=== PATIENT | female | born 1945 | race Caucasian/White ===

== ENCOUNTER 2018-05-20 19:37 | Inpatient (IN) | payer MEDICARE, OTHER ==
[~2018-05-20] VITALS: Ht 154.9 cm; Wt 86.3 kg
[2018-05-20 20:58] LABS: BASO % 1 % (0-3); EOS # 0.1 x10^3/uL (0.0-0.7); EOS % 2 % (0-3); HEMATOCRIT 41.6 % (36.0-47.0); HEMOGLOBIN 13.5 g/dL (12.0-15.5); LYMPH # 2.6 x10^3/uL (1.0-4.8); LYMPH % 42 % (24-48); MEAN CORPUSCULAR HEMOGLOBIN 27 pg (25-35); MEAN CORPUSCULAR HGB CONC 33 g/dL (31-37); MEAN CORPUSCULAR VOLUME 83 fL (79-100); MONO # 0.5 x10^3/uL (0.0-1.1); MONO % 8 % (0-9); NEUT # 2.9 x10^3uL (1.8-7.7); NEUT % 48 % (31-73); PLATELET COUNT 220 x10^3/uL (140-400); RED BLOOD COUNT 5.03 x10^6/uL (3.50-5.40); RED CELL DISTRIBUTION WIDTH 14.6 % (11.5-14.5); WHITE BLOOD COUNT 6.2 x10^3/uL (4.0-11.0)
[2018-05-20 21:07] LABS: AMPHETAMINE/METHAMPHETAMINE NEG (NEG); BARBITURATES NEG (NEG); BENZODIAZEPINES POS (NEG); CANNABINOIDS NEG (NEG); COCAINE NEG (NEG); METHADONE NEG (NEG); OPIATES NEG (NEG); PHENCYCLIDINE NEG (NEG)
[2018-05-20 21:07] LABS: CALCIUM 9.2 mg/dL (8.5-10.1); CREATININE 1.7 mg/dL (0.6-1.0); GFR 29.6; POTASSIUM 3.9 mmol/L (3.5-5.1)
[2018-05-20] MEDS ORDERED: ESCITALOPRAM OX10 MG PO (21:08)
[2018-05-20] MEDS ORDERED: FOLI1TAB16 PO (21:08)
[2018-05-20] MEDS ORDERED: ATEN25TA42 PO (21:08)
[2018-05-20] MEDS ORDERED: LEVO100T PO (21:08)
[2018-05-20] MEDS ORDERED: QUET300T7 PO (21:08)
[2018-05-20] MEDS ORDERED: LOSA50TA14 PO (21:08)
[2018-05-20] MEDS ORDERED: ASPI81TA50 PO (21:08)
--- NOTE | 2018-05-20 21:11 | ED.ADGEN ---
Adult General Chief Complaint Chief Complaint Medical clearance [facility] HPI Patient to be admitted to the [facility] she is in emergency department for medical clearance she denies any pain and acute symptoms stated in stating she is feeling normal Review of Systems Review of Systems Constitutional: Denies fever or chills [] Eyes: Denies change in visual acuity, redness, or eye pain [] HENT: Denies nasal congestion or sore throat [] Respiratory: Denies cough or shortness of breath [] Cardiovascular: No additional information not addressed in HPI [] GI: Denies abdominal pain, nausea, vomiting, bloody stools or diarrhea [] : Denies dysuria or hematuria [] Musculoskeletal: Denies back pain or joint pain [] Integument: Denies rash or skin lesions [] Allergies Allergies Allergies Coded Allergies Type Severity Reaction Last Updated Verified donepezil Allergy Severe Shortness of Air 05/20/18 Yes Physical Exam Physical Exam Constitutional: Well developed, well nourished, no acute distress, non-toxic appearance. [] HENT: Normocephalic, atraumatic, bilateral external ears normal, oropharynx moist, no oral exudates, nose normal. [] Eyes: PERRLA, EOMI, conjunctiva normal, no discharge. [] Neck: Normal range of motion, no tenderness, supple, no stridor. [] Cardiovascular:Heart rate regular rhythm, no murmur [] Lungs & Thorax: Bilateral breath sounds clear to auscultation [] Abdomen: Bowel sounds normal, soft, no tenderness, no masses, no pulsatile masses. [] Skin: Warm, dry, no erythema, no rash. [] Back: No tenderness, no CVA tenderness. [] Extremities: No tenderness, no cyanosis, no clubbing, ROM intact, no edema. [] Neurologic: Alert and oriented X 3, normal motor function, normal sensory function, no focal deficits noted. [] Current Patient Data Lab Results Laboratory Tests Test 05/20/18 20:35 05/20/18 20:40 Urine Opiates Screen Neg (NEG) Urine Methadone Screen Neg (NEG) Urine Barbiturates Neg (NEG) Urine Phencyclidine Screen Neg (NEG) Urine Amphetamine/Methamphetamine Neg (NEG) Urine Benzodiazepines Screen Pos (NEG) Urine Cocaine Screen Neg (NEG) Urine Cannabinoids Screen Neg (NEG) Urine Ethyl Alcohol Neg (NEG) White Blood Count 6.2 x10^3/uL (4.0-11.0) Red Blood Count 5.03 x10^6/uL (3.50-5.40) Hemoglobin 13.5 g/dL (12.0-15.5) Hematocrit 41.6 % (36.0-47.0) Mean Corpuscular Volume 83 fL (79-100) Mean Corpuscular Hemoglobin 27 pg (25-35) Mean Corpuscular Hemoglobin Concent 33 g/dL (31-37) Red Cell Distribution Width 14.6 % (11.5-14.5) H Platelet Count 220 x10^3/uL (140-400) Neutrophils (%) (Auto) 48 % (31-73) Lymphocytes (%) (Auto) 42 % (24-48) Monocytes (%) (Auto) 8 % (0-9) Eosinophils (%) (Auto) 2 % (0-3) Basophils (%) (Auto) 1 % (0-3) Neutrophils # (Auto) 2.9 x10^3uL (1.8-7.7) Lymphocytes # (Auto) 2.6 x10^3/uL (1.0-4.8) Monocytes # (Auto) 0.5 x10^3/uL (0.0-1.1) Eosinophils # (Auto) 0.1 x10^3/uL (0.0-0.7) Basophils # (Auto) 0.0 x10^3/uL (0.0-0.2) Sodium Level 139 mmol/L (136-145) Potassium Level 3.9 mmol/L (3.5-5.1) Chloride Level 102 mmol/L (98-107) Carbon Dioxide Level 26 mmol/L (21-32) Anion Gap 11 (6-14) Blood Urea Nitrogen 17 mg/dL (7-20) Creatinine 1.7 mg/dL (0.6-1.0) H Estimated GFR (Cockcroft-Gault) 29.6 Glucose Level 104 mg/dL (70-99) H Calcium Level 9.2 mg/dL (8.5-10.1) EKG EKG [] Radiology/Procedures Radiology/Procedures [] Course & Med Decision Making Course & Med Decision Making Pertinent Labs and Imaging studies reviewed. (See chart for details) [] Final Impression Final Impression [] Problems: (1) Medical clearance for psychiatric admission Dragfrancisco Disclaimer Dragon Disclaimer This electronic medical record was generated, in whole or in part, using a voice recognition dictation system. JATINDER GREENWOOD MD May 20, 2018 21:11
[2018-05-20 21:23] LABS: BACTERIA,URINE 0 /HPF (0-FEW); BILIRUBIN,URINE NEG (NEG); CLARITY,URINE CLOUDY; COLOR,URINE AMBER; GLUCOSE,URINE NEG (NEG); NITRITE,URINE NEG (NEG); SQUAMOUS EPITHELIAL CELL,UR OCC /LPF; UROBILINOGEN,URINE 0.2 mg/dL (0.2 mg/dL)
[2018-05-20] MEDS ORDERED: ACETAMINOPHEN 325 MG TABLET PO PRN (21:45)
[2018-05-20 23:45] VITALS: BP 102/59
[2018-05-21] MEDS ORDERED: METHYL SALICYLATE/MENTHOL TOPICAL OINTMENT 29GM TUBE. TP PRN (01:00)
[2018-05-21] MEDS ORDERED: MAG HYDROX/AL HYDROX/SIMETH 30 ML ORAL.SUSP PO PRN (01:00)
[2018-05-21] MEDS ORDERED: MAGNESIUM HYDROXIDE 2,400 MG/30 ML ORAL.SUSP. PO PRN (01:00)
[2018-05-21] MEDS ORDERED: ACETAMINOPHEN 325 MG TABLET PO PRN (01:00)
[2018-05-21] MEDS: LEVOTHYROXINE 100 MCG TABLET PO SCH (05:45)
[2018-05-21 06:15] VITALS: BP 135/61
[2018-05-21] MEDS: FOLIC ACID 1 MG TABLET PO SCH (07:58)
[2018-05-21] MEDS: ASPIRIN 81 MG TAB.CHEW PO SCH (07:58)
[2018-05-21] MEDS: CITALOPRAM 20 MG TABLET. PO SCH (07:58)
[2018-05-21] MEDS: ATENOLOL 25 MG TABLET PO SCH (07:59)
[2018-05-21] MEDS: LOSARTAN 50 MG TABLET. PO SCH (07:59)
[2018-05-21 08:16] LABS: BASO % 1 % (0-3); EOS # 0.1 x10^3/uL (0.0-0.7); EOS % 3 % (0-3); HEMOGLOBIN 13.2 g/dL (12.0-15.5); LYMPH # 1.6 x10^3/uL (1.0-4.8); LYMPH % 36 % (24-48); MEAN CORPUSCULAR HEMOGLOBIN 27 pg (25-35); MEAN CORPUSCULAR HGB CONC 33 g/dL (31-37); MEAN CORPUSCULAR VOLUME 83 fL (79-100); MONO # 0.4 x10^3/uL (0.0-1.1); MONO % 9 % (0-9); NEUT # 2.3 x10^3uL (1.8-7.7); NEUT % 52 % (31-73); PLATELET COUNT 217 x10^3/uL (140-400); RED BLOOD COUNT 4.83 x10^6/uL (3.50-5.40); RED CELL DISTRIBUTION WIDTH 14.9 % (11.5-14.5); WHITE BLOOD COUNT 4.4 x10^3/uL (4.0-11.0)
[2018-05-21] MEDS: QUEtiapine 100 MG TABLET. PO SCH ×2 (08:19→20:16)
[2018-05-21 08:30] LABS: ALBUMIN 3.5 g/dL (3.4-5.0); ALBUMIN/GLOBULIN RATIO 0.9 (1.0-1.7); CALCIUM 9.2 mg/dL (8.5-10.1); CREATININE 1.7 mg/dL (0.6-1.0); GFR 29.6; MAGNESIUM 2.1 mg/dL (1.8-2.4); TOTAL BILIRUBIN 0.6 mg/dL (0.2-1.0); TOTAL PROTEIN 7.3 g/dL (6.4-8.2)
[2018-05-21] MEDS ORDERED: QUETIAPINE FUMARATE 300 MG PO SCH (09:00)
[2018-05-21 16:07] VITALS: BP 121/89
[2018-05-21 17:08] LABS: THYROXINE 6.7 ug/dL (4.5-12.0)
[2018-05-21 17:47] LABS: THYROID STIM HORMONE (TSH) 19.147 uIU/mL (0.358-3.740)
[2018-05-21] MEDS: CHOLECALCIFEROL (VITAMIN D3) 50,000 UNIT CAPSULE PO SCH (20:17)
--- NOTE | 2018-05-21 22:40 | PDOC ---
Exam Note: [place] Note: Please also refer to the separate dictated note~for this date of service dictated separately. Discussed the patient with Nursing staff reviewed the chart.~Reviewed interim history and current functioning. Reviewed vital signs,~ Labs/ Radiology~and current medications noted below. Continue current treatment with the changes noted in the dictated addendum note Assessment: Vital Signs: Vital Signs Date Time Temp Pulse Resp B/P (MAP) Pulse Ox O2 Delivery O2 Flow Rate FiO2 05/21/18 16:07 97.7 72 24 121/89 (100) 94 Room Air Labs: Laboratory Tests Test 05/21/18 07:27 White Blood Count 4.4 x10^3/uL (4.0-11.0) Red Blood Count 4.83 x10^6/uL (3.50-5.40) Hemoglobin 13.2 g/dL (12.0-15.5) Hematocrit 40.0 % (36.0-47.0) Mean Corpuscular Volume 83 fL (79-100) Mean Corpuscular Hemoglobin 27 pg (25-35) Mean Corpuscular Hemoglobin Concent 33 g/dL (31-37) Red Cell Distribution Width 14.9 % (11.5-14.5) H Platelet Count 217 x10^3/uL (140-400) Neutrophils (%) (Auto) 52 % (31-73) Lymphocytes (%) (Auto) 36 % (24-48) Monocytes (%) (Auto) 9 % (0-9) Eosinophils (%) (Auto) 3 % (0-3) Basophils (%) (Auto) 1 % (0-3) Neutrophils # (Auto) 2.3 x10^3uL (1.8-7.7) Lymphocytes # (Auto) 1.6 x10^3/uL (1.0-4.8) Monocytes # (Auto) 0.4 x10^3/uL (0.0-1.1) Eosinophils # (Auto) 0.1 x10^3/uL (0.0-0.7) Basophils # (Auto) 0.0 x10^3/uL (0.0-0.2) Sodium Level 140 mmol/L (136-145) Potassium Level 4.0 mmol/L (3.5-5.1) Chloride Level 103 mmol/L (98-107) Carbon Dioxide Level 27 mmol/L (21-32) Anion Gap 10 (6-14) Blood Urea Nitrogen 17 mg/dL (7-20) Creatinine 1.7 mg/dL (0.6-1.0) H Estimated GFR (Cockcroft-Gault) 29.6 BUN/Creatinine Ratio 10 (6-20) Glucose Level 86 mg/dL (70-99) Calcium Level 9.2 mg/dL (8.5-10.1) Magnesium Level 2.1 mg/dL (1.8-2.4) Iron Level 95 ug/dL (50-170) Total Iron Binding Capacity 290 ug/dL (250-450) Iron Saturation 33 % (15-34) Total Bilirubin 0.6 mg/dL (0.2-1.0) Aspartate Amino Transferase (AST) 21 U/L (15-37) Alanine Aminotransferase (ALT) 18 U/L (14-59) Alkaline Phosphatase 72 U/L (46-116) Total Protein 7.3 g/dL (6.4-8.2) Albumin 3.5 g/dL (3.4-5.0) Albumin/Globulin Ratio 0.9 (1.0-1.7) L Triglycerides Level 79 mg/dL (0-150) Cholesterol Level 262 mg/dL (0-200) H LDL Cholesterol, Calculated 196 mg/dL (0-100) H VLDL Cholesterol, Calculated 15 mg/dL (0-40) Non-HDL Cholesterol Calculated 211 mg/dL (0-129) H HDL Cholesterol 51 mg/dL (40-60) Cholesterol/HDL Ratio 5.0 25-Hydroxy Vitamin D Total 12.8 ng/mL (30-100) L Thyroid Stimulating Hormone (TSH) 19.147 uIU/mL (0.358-3.740) Thyroxine (T4) 6.7 ug/dL (4.5-12.0) Total Triiodothyronine (TT3) 68 ng/dL (71-180) L Treponema pallidum Antibody Nonreactive (Nonreactive) Current Medications: Meds: Current Medications Acetaminophen (Tylenol) 650 mg PRN Q4HRS PRN PO FEVER; Start 05/20/18 at 21:45 ; Stop 05/21/18 at 21:44; Status DC Acetaminophen (Tylenol) 650 mg PRN Q6HRS PRN PO PAIN / TEMP; Start 3/22/19 at 01:00 Multi-Ingredient Ointment (Analgesic [place]) 1 best PRN QID PRN TP MUSCLE PAIN; Start 05/21/18 at 01:00 Al Hydroxide/Mg Hydroxide (Mylanta Plus Xs) 15 ml PRN AFTMEALHC PRN PO DYSPEPSIA; Start 05/21/18 at 01:00 Magnesium Hydroxide (Milk Of Magnesia) 2,400 mg PRN QHS PRN PO CONSTIPATION; Start 05/21/18 at 01:00 Atenolol (Tenormin) 25 mg DAILY PO Last administered on 05/21/18at 07:59; Start 05/21/18 at 09:00 Levothyroxine Sodium (Synthroid) 100 mcg DAILY06 PO Last administered on at 05:45; Start 05/21/18 at 06:00 Aspirin (Children'S Aspirin) 81 mg DAILYWBKFT PO Last administered on at 07:58; Start 05/21/18 at 08:00 Folic Acid (Folic Acid) 1 mg DAILY PO Last administered on 05/21/18at 07:58; Start 05/21/18 at 09:00 Losartan Potassium (Cozaar) 50 mg DAILY PO Last administered on 05/21/18at 07:59 ; Start 05/21/18 at 09:00 Citalopram Hydrobromide (CeleXA) 20 mg DAILY PO Last administered on 05/21/18at 07:58; Start 05/21/18 at 09:00 Non-Formulary Medication (Quetiapine Fumarate (Seroquel Xr)) 300 mg DAILY PO ; Start 05/21/18 at 09:00; Stop 05/21/18 at 09:00; Status DC Quetiapine Fumarate (SEROquel) 150 mg BID PO Last administered on 05/21/18at 20: 16; Start 05/21/18 at 09:00 Vitamin D (Vitamin D3) 50,000 unit WEEKLY PO Last administered on 05/21/18at 20: 17; Start 05/21/18 at 18:30 Active Scripts Active Reported Synthroid (Levothyroxine Sodium) 100 Mcg Tablet 100 Mcg PO DAILYAC Seroquel Xr (Quetiapine Fumarate) 300 Mg Tab.er.24h 300 Mg PO DAILY Losartan Potassium 50 Mg Tablet 50 Mg PO DAILY Escitalopram Oxalate 10 Mg Tablet 10 Mg PO DAILY Folic Acid 1 Mg Tablet 1 Mg PO DAILY Atenolol (Atenolol) 25 Mg Tablet 25 Mg PO DAILY Aspir-Low (Aspirin) 81 Mg Tablet. 81 Mg PO DAILY I have reviewed the current psychotropics carefully including drug interactions. Risk benefit ratio favors no change other than as noted in my dictated progress note. Diagnosis: Problems: (1) Dementia with behavioral disturbance (2) Medical clearance for psychiatric admission LENORE REAGAN MD May 21, 2018 22:40
[2018-05-21 23:06] LABS: HEMOGLOBIN A1C 5.7 % (4.8-5.6)
--- NOTE | 2018-05-21 23:56 | CONS ---
DATE OF CONSULTATION: 05/21/2018 REASON FOR CONSULTATION: Medical management. HISTORY OF PRESENT ILLNESS: The patient is a 72-year-old female patient who apparently self signed herself in on account of increasing anxiety, paranoia, thinks she will be kicked out of her apartment whether someone will break in and apparently she has not been taking her medication for more than 2 weeks, all this on a background of major depressive disorder. PAST MEDICAL HISTORY: Significant for hypothyroidism, hypertension, osteoarthritis, constipation. PAST PSYCHIATRIC HISTORY: Significant for dementia, major depressive disorder, generalized anxiety disorder and bipolar disorder. ALLERGIES: SHE IS ALLERGIC TO ARICEPT AND INFLUENZA VIRUS VACCINE. MEDICATIONS: She is currently on following medications: She is on atenolol 25 mg once a day, losartan potassium 50 mg once a day, aspirin 81 mg once a day, escitalopram oxalate 10 mg daily. She is on quetiapine fumarate 300 mg daily, levothyroxine sodium 100 mcg daily, folic acid 1 mg once a day. FAMILY HISTORY: Noncontributory. SOCIAL HISTORY: She apparently lives alone, has no children. PHYSICAL EXAMINATION: GENERAL: On examining her, she looked pale, but no jaundice, cyanosis, or thyromegaly. No jugular venous distension. No lower limb edema. VITAL SIGNS: Her heart rate was 72, blood pressure 121/89, temperature was 98.1, respiratory rate was 18 and oxygen saturation was 94%. HEAD, EYES, EARS, NOSE AND THROAT: Showed normocephalic, atraumatic. NECK: Supple. HEART: Showed normal first and second heart sounds with no gallop, rub or murmur. CHEST: Clear to auscultation. No crepitation or rhonchi. ABDOMEN: Distended, soft, nontender. NEUROLOGIC: She is demented, but without any obvious lateralizing sign. All her cranial nerves intact. EXTREMITIES: She moves all extremities without difficulty. She ambulates without assistance or assistive devices. LABORATORY DATA: Showed a white cell count of 6200, hemoglobin 13, hematocrit 42, MCV 82 and platelet count of 220,000. Her chemistry showed a serum sodium 140, potassium 4, chloride 103, bicarbonate 27, anion gap of 10, BUN 17, creatinine 1.7. Estimated GFR was 29 mL per minute. Her glucose was 86, calcium was 9.2, magnesium 2.1. Serum iron 95, TIBC was 220 and iron saturation was 33%. Her total bilirubin, AST, ALT, alkaline phosphatase were normal. Total protein was 7.3, albumin was 3.5. Serum triglycerides were 79. Total cholesterol was 262, LDL was 196, VLDL was 15, HDL was 51, the ratio was 5. Her 25-hydroxy vitamin D was 12.8, which is low. TSH was high at 19.147, total T4 was normal, but total T3 was low at 68. Her urinalysis was unremarkable. Toxic screen was essentially negative and her treponema pallidum antibody was nonreactive. ASSESSMENT AND PLAN: In summary, this is a 72-year-old female patient, who signed herself in on account of increasing anxiety, increased paranoia, thinking that she will be kicked out of her apartment or that someone would break in. Apparently, she has not been taking her medication for almost 2 weeks now. Medically, she is known to have hypothyroidism, hypertension, osteoarthritis, and chronic constipation. Her lab work showed that she has hypovitaminosis D and also her TSH was high. Given the fact that she is not really taking her medication, it is difficult to know whether this is really a low-dose of Synthroid or that she is not taking it properly. I will replenish her vitamin D; however, I will probably wait for a few more days and repeat her T3, T4, free T4 and then adjust Synthroid higher if they continue to be low and TSH continued to be high. Thank you, Dr. Penny, for allowing me to participate in the care of this patient. DOLORES SIMEON MD DR: TOÑITO/victor m JOB#: [id number] / [id number]
[2018-05-22] MEDS: LEVOTHYROXINE 100 MCG TABLET PO SCH (05:33)
[2018-05-22 05:50] VITALS: BP 131/78
[2018-05-22] MEDS: ASPIRIN 81 MG TAB.CHEW PO SCH (08:05)
[2018-05-22] MEDS: QUEtiapine 100 MG TABLET. PO SCH ×2 (08:05→20:07)
[2018-05-22] MEDS: LOSARTAN 50 MG TABLET. PO SCH (08:05)
[2018-05-22] MEDS: FOLIC ACID 1 MG TABLET PO SCH (08:05)
[2018-05-22] MEDS: CITALOPRAM 20 MG TABLET. PO SCH (08:05)
[2018-05-22] MEDS: ATENOLOL 25 MG TABLET PO SCH (08:06)
--- NOTE | 2018-05-22 09:15 | HP ---
ADMIT DATE: 05/21/2018 This is a late entry, date of service 05/21/2018, covers elements not covered in my initial note. I met with the patient evening of 05/21/2018 for this evaluation. Previously discussed with Ira Elias, catering coordinator and nursing staff on 2 or 3 occasions after we got a referral from the [facility], referred by the patient's primary care physician at the [facility]. IDENTIFYING DATA: The patient is a 72-year-old female referred as above after she presented to the [facility] earlier on 05/20/2018 with increasing anxiety, paranoia. She is telling the staff that she will be kicked out of her apartment or that someone will break in. She has not been taking medications for the past 2 weeks, has been increasingly paranoid, anxious, unmanageable and concerns have been that she lives alone in her apartment despite case management services. Behaviors deemed dangerous. She continues to drive despite all the above and her progressive memory deficits. She has a history of bipolar disorder with psychotic features. CHIEF COMPLAINT: "They are coming after me. I see Aleida at the [facility] for my medications and Liz, the caser comes to my home in [place]. I have still been driving. I have not had an accident touch wood." The patient is anxious, restless, constantly moving, very paranoid, distractible during the entire session. HISTORY OF PRESENT ILLNESS: The patient has a history of progressive short term memory deficits, marked anxiety, mood lability, sleep and appetite disturbance and significant paranoia. She denies active suicidal or homicidal ideation. She has failed a prior recent inpatient psychiatric hospitalization at [facility]. PAST PSYCHIATRIC HISTORY: As above. PAST MEDICAL HISTORY: Positive for hypothyroidism, hypertension, osteoarthritis, chronic constipation. CODE STATUS: Full code. DRUG ALLERGIES: ARICEPT AND FLU VACCINE. Diet, mechanical soft. Accu-Cheks, none. Takes medications whole. Ambulates ad shelly. UA negative on 05/20/2018. CURRENT PSYCHOTROPICS: Celexa 20 mg a day, Seroquel XR 300 mg a day. FAMILY HISTORY: Noncontributory. SOCIAL HISTORY: No history of alcohol, drug abuse, physical, sexual or elder abuse. She is not known to be a perpetrator. REACTION TO HOSPITALIZATION: The patient accepting of it. ASSETS: Supportive living in her apartment and support from the [facility] staff. REVIEW OF SYSTEMS: No CV, , pulmonary, eye, ENT system symptoms on review. She has vague somatic symptoms. MENTAL STATUS EXAMINATION: The patient was seen individually in her room, evening of 05/21/2018. She is oriented to herself and situation. She is anxious, restless, constantly moving up and down, standing up, looking around, easily distractable, paranoid. Speech coherent, rapid at times. Abstraction fair, computation impaired, language function intact, attention span short. Mood and affect quite labile. No active suicidal or homicidal ideation. The patient is alert, oriented x 2. When questioned on who the president was, she was unable to remember the name and stated that person with a blonde hair. LABORATORY DATA: Reviewed. IMPRESSION: Probable bipolar 1 disorder, mixed with psychotic features. Major neurocognitive disorder, early Alzheimer, vascular with delusion, depression. Anxiety disorder, unspecified. Impulse control disorder, unspecified. Rest as above. PLAN: Admit to Geropsychiatry Unit at [facility]. I will see the patient daily individually from a psychiatric standpoint, medical followup with Dr. Collier. Continue the patient on her current psychotropics. Consider Depakote as a mood stabilizer. Consider changing Seroquel to Risperdal given her significant psychotic symptoms. In the interim, we will change the Seroquel XR 300 mg daily to Seroquel 150 b.i.d. since XR is not available at the hospital. Further we will have a CT head done, workup of her memory deficits and obtain past psychiatric records from [facility]. Estimated length of stay 10-12 days. DISPOSITION PLAN: Perhaps back to her apartment or a more structured setting. LENORE REAGAN MD DR: MOIZ/victor m JOB#: [id number] / [id number]
--- NOTE | 2018-05-22 14:04 | RAD ---
CT HEAD WO CONTRAST History: Mental status change Comparison: None. Technique: Noncontrast CT imaging was performed of the head. Exposure: One or more of the following individualized dose reduction techniques were utilized for this examination: 1. Automated exposure control 2. Adjustment of the mA and/or kV according to patient size 3. Use of iterative reconstruction technique. Findings: There is motion degradation. No convincing acute intracranial hemorrhage is identified. There is no midline shift. Ventricular size is fairly proportionate to the sulcal spaces, some cystic foci in the temporal region which may be due to extent of the ventricles or cysts. There is atherosclerotic calcification of the carotid siphons bilaterally. There is some scattered [id number] ill-defined low-density of the supratentorial parenchyma bilaterally. Visualized paranasal sinuses are mostly aerated, negligible patchy ethmoid air cell mucosal thickening. There is right td bullosa. Mastoid air cells are aerated. No acute calvarial abnormality is identified. Impression: 1. No convincing acute intracranial abnormality is identified allowing for motion. Ill-defined low-density of the supratentorial parenchyma bilaterally is more commonly due to chronic microvascular ischemic disease in a patient this age. Electronically signed by: Giorgi Leiva MD (05/22/2018 2:01 PM) [facility]
[2018-05-22 16:22] VITALS: BP 124/72
--- NOTE | 2018-05-22 23:05 | PDOC ---
Exam Note: [place] Note: Please also refer to the separate dictated note~for this date of service dictated separately.~Patient seen individually. Discussed the patient with Nursing staff reviewed the chart.~Reviewed interim history and current functioning. Reviewed vital signs,~Labs/ Radiology~and current medications noted below. Continue current treatment with the changes noted in the dictated addendum note Assessment: Vital Signs: Vital Signs Date Time Temp Pulse Resp B/P (MAP) Pulse Ox O2 Delivery O2 Flow Rate FiO2 05/22/18 16:22 97.8 79 20 124/72 (89) 98 Room Air I&O Intake and Output 05/22/18 07:00 Intake Total 840 ml Balance 840 ml Intake Oral 840 ml Current Medications: Meds: Current Medications Acetaminophen (Tylenol) 650 mg PRN Q4HRS PRN PO FEVER; Start 05/20/18 at 21:45 ; Stop 05/21/18 at 21:44; Status DC Acetaminophen (Tylenol) 650 mg PRN Q6HRS PRN PO PAIN / TEMP; Start 05/21/18 at 01:00 Multi-Ingredient Ointment (Analgesic [place]) 1 best PRN QID PRN TP MUSCLE PAIN; Start 05/21/18 at 01:00 Al Hydroxide/Mg Hydroxide (Mylanta Plus Xs) 15 ml PRN AFTMEALHC PRN PO DYSPEPSIA; Start 05/21/18 at 01:00 Magnesium Hydroxide (Milk Of Magnesia) 2,400 mg PRN QHS PRN PO CONSTIPATION; Start 05/21/18 at 01:00 Atenolol (Tenormin) 25 mg DAILY PO Last administered on 05/22/18at 08:06; Start 05/21/18 at 09:00 Levothyroxine Sodium (Synthroid) 100 mcg DAILY06 PO Last administered on at 05:33; Start 05/21/18 at 06:00 Aspirin (Children'S Aspirin) 81 mg DAILYWBKFT PO Last administered on at 08:05; Start 05/21/18 at 08:00 Folic Acid (Folic Acid) 1 mg DAILY PO Last administered on 05/22/18at 08:05; Start 05/21/18 at 09:00 Losartan Potassium (Cozaar) 50 mg DAILY PO Last administered on 05/22/18at 08:05 ; Start 05/21/18 at 09:00 Citalopram Hydrobromide (CeleXA) 20 mg DAILY PO Last administered on 05/22/18at 08:05; Start 05/21/18 at 09:00 Non-Formulary Medication (Quetiapine Fumarate (Seroquel Xr)) 300 mg DAILY PO ; Start 05/21/18 at 09:00; Stop 05/21/18 at 09:00; Status DC Quetiapine Fumarate (SEROquel) 150 mg BID PO Last administered on 05/22/18at 20: 07; Start 05/21/18 at 09:00 Vitamin D (Vitamin D3) 50,000 unit WEEKLY PO Last administered on 05/21/18at 20: 17; Start 05/21/18 at 18:30 Active Scripts Active Reported Synthroid (Levothyroxine Sodium) 100 Mcg Tablet 100 Mcg PO DAILYAC Seroquel Xr (Quetiapine Fumarate) 300 Mg Tab.er.24h 300 Mg PO DAILY Losartan Potassium 50 Mg Tablet 50 Mg PO DAILY Escitalopram Oxalate 10 Mg Tablet 10 Mg PO DAILY Folic Acid 1 Mg Tablet 1 Mg PO DAILY Atenolol (Atenolol) 25 Mg Tablet 25 Mg PO DAILY Aspir-Low (Aspirin) 81 Mg Tablet. 81 Mg PO DAILY I have reviewed the current psychotropics carefully including drug interactions. Risk benefit ratio favors no change other than as noted in my dictated progress note. Diagnosis: Problems: (1) Dementia with behavioral disturbance (2) Medical clearance for psychiatric admission LENORE REAGAN MD May 22, 2018 23:05
[2018-05-23] MEDS ORDERED: risperiDONE 0.5 MG TABLET. PO ONE (01:15)
[2018-05-23] MEDS: LEVOTHYROXINE 100 MCG TABLET PO SCH (05:03)
[2018-05-23 06:16] VITALS: BP 135/0
[2018-05-23] MEDS: CITALOPRAM 20 MG TABLET. PO SCH (07:31)
[2018-05-23] MEDS: ASPIRIN 81 MG TAB.CHEW PO SCH (07:31)
[2018-05-23] MEDS: FOLIC ACID 1 MG TABLET PO SCH (07:31)
[2018-05-23 07:43] VITALS: BP 128/64
[2018-05-23] MEDS: LOSARTAN 50 MG TABLET. PO SCH (07:49)
[2018-05-23] MEDS: ATENOLOL 25 MG TABLET PO SCH (07:50)
[2018-05-23 16:38] VITALS: BP 130/68
[2018-05-23] MEDS: traZODone 50 MG TABLET. PO SCH (20:30)
[2018-05-23] MEDS: risperiDONE 0.25 MG TABLET. PO SCH (20:30)
--- NOTE | 2018-05-23 22:39 | PDOC ---
Exam Note: [place] Note: Please also refer to the separate dictated note~for this date of service dictated separately.~Patient seen individually. Discussed the patient with Nursing staff reviewed the chart.~Reviewed interim history and current functioning. Reviewed vital signs,~Labs/ Radiology~and current medications noted below. Continue current treatment with the changes noted in the dictated addendum note Assessment: Vital Signs: Vital Signs Date Time Temp Pulse Resp B/P (MAP) Pulse Ox O2 Delivery O2 Flow Rate FiO2 05/23/18 16:38 98.0 77 17 130/68 (88) 96 Room Air I&O Intake and Output 05/23/18 07:00 Intake Total 1200 ml Balance 1200 ml Intake Oral 1200 ml # Voids 1 Current Medications: Meds: Current Medications Acetaminophen (Tylenol) 650 mg PRN Q4HRS PRN PO FEVER; Start 05/20/18 at 21:45 ; Stop 05/21/18 at 21:44; Status DC Acetaminophen (Tylenol) 650 mg PRN Q6HRS PRN PO PAIN / TEMP; Start 05/21/18 at 01:00 Multi-Ingredient Ointment (Analgesic [place]) 1 best PRN QID PRN TP MUSCLE PAIN; Start 05/21/18 at 01:00 Al Hydroxide/Mg Hydroxide (Mylanta Plus Xs) 15 ml PRN AFTMEALHC PRN PO DYSPEPSIA; Start 05/21/18 at 01:00 Magnesium Hydroxide (Milk Of Magnesia) 2,400 mg PRN QHS PRN PO CONSTIPATION; Start 05/21/18 at 01:00 Atenolol (Tenormin) 25 mg DAILY PO Last administered on 05/23/18at 07:50; Start 05/21/18 at 09:00 Levothyroxine Sodium (Synthroid) 100 mcg DAILY06 PO Last administered on at 05:03; Start 05/21/18 at 06:00 Aspirin (Children'S Aspirin) 81 mg DAILYWBKFT PO Last administered on at 07:31; Start 05/21/18 at 08:00 Folic Acid (Folic Acid) 1 mg DAILY PO Last administered on 05/23/18at 07:31; Start 05/21/18 at 09:00 Losartan Potassium (Cozaar) 50 mg DAILY PO Last administered on 05/23/18at 07:49 ; Start 05/21/18 at 09:00 Citalopram Hydrobromide (CeleXA) 20 mg DAILY PO Last administered on 05/23/18at 07:31; Start 05/21/18 at 09:00 Non-Formulary Medication (Quetiapine Fumarate (Seroquel Xr)) 300 mg DAILY PO ; Start 05/21/18 at 09:00; Stop 05/21/18 at 09:00; Status DC Quetiapine Fumarate (SEROquel) 150 mg BID PO Last administered on 05/22/18at 20: 07; Start 05/21/18 at 09:00; Stop 05/23/18 at 00:01; Status DC Vitamin D (Vitamin D3) 50,000 unit WEEKLY PO Last administered on 05/21/18 20: 17; Start 05/21/18 at 18:30 Risperidone (RisperDAL) 0.5 mg 1X ONCE PO Last administered on 05/23/18at 01:53 ; Start 05/23/18 at 01:15; Stop 05/23/18 at 01:21; Status DC Risperidone (RisperDAL) 1 mg HS PO Last administered on 05/23/18at 20:30; Start 05/23/18 at 21:00 Olanzapine (ZyPREXA ZYDIS) 2.5 mg PRN Q2HR PRN PO PSYCHOSIS; Start 05/23/18 at 00:00 Trazodone HCl (Desyrel) 50 mg QHS PO Last administered on 05/23/18at 20:30; Start 05/23/18 at 21:00 Active Scripts Active Reported Synthroid (Levothyroxine Sodium) 100 Mcg Tablet 100 Mcg PO DAILYAC Seroquel Xr (Quetiapine Fumarate) 300 Mg Tab.er.24h 300 Mg PO DAILY Losartan Potassium 50 Mg Tablet 50 Mg PO DAILY Escitalopram Oxalate 10 Mg Tablet 10 Mg PO DAILY Folic Acid 1 Mg Tablet 1 Mg PO DAILY Atenolol (Atenolol) 25 Mg Tablet 25 Mg PO DAILY Aspir-Low (Aspirin) 81 Mg Tablet.dr 81 Mg PO DAILY I have reviewed the current psychotropics carefully including drug interactions. Risk benefit ratio favors no change other than as noted in my dictated progress note. Diagnosis: Problems: (1) Dementia with behavioral disturbance (2) Medical clearance for psychiatric admission LENORE REAGAN MD May 23, 2018 22:39
[2018-05-24 05:23] VITALS: BP 156/78
[2018-05-24] MEDS: LEVOTHYROXINE 100 MCG TABLET PO SCH (05:32)
[2018-05-24] MEDS: ATENOLOL 25 MG TABLET PO SCH (07:45)
[2018-05-24] MEDS: ASPIRIN 81 MG TAB.CHEW PO SCH (07:45)
[2018-05-24] MEDS: FOLIC ACID 1 MG TABLET PO SCH (07:45)
[2018-05-24] MEDS: LOSARTAN 50 MG TABLET. PO SCH (07:45)
[2018-05-24] MEDS: CITALOPRAM 20 MG TABLET. PO SCH (07:47)
[2018-05-24 16:58] VITALS: BP 120/75
[2018-05-24] MEDS: traZODone 50 MG TABLET. PO SCH (19:50)
[2018-05-24] MEDS: risperiDONE 0.25 MG TABLET. PO SCH (19:50)
--- NOTE | 2018-05-24 20:05 | PN ---
DATE: 05/22/2018 PSYCHIATRIC PROGRESS NOTE This late entry 05/22/2018 covers elements not covered in my initial note. SUBJECTIVE: I met with the patient late in the evening. The patient slept 6 hours previous night, remains somewhat anxious, at times believes she is in a assisted. REVIEW OF SYSTEMS: Positive for ongoing anxiety. No CV, , pulmonary, eye, ENT system symptoms on review. MENTAL STATUS EXAM: The patient is reasonably oriented. Speech coherent, rapid at times. Abstraction fair, computation impaired, language function intact. She is quite anxious, distractable, paranoid, looking all over the room as I met with her. LABORATORY DATA: Reviewed. IMPRESSION: Probable bipolar 1 disorder, mixed with psychotic features; anxiety disorder, unspecified. PLAN: Start trazodone 50 mg at bedtime, may repeat x 1. Change the Seroquel XR 300 mg a day to Risperdal 0.5 mg at bedtime x 1 day, then 1 mg p.o. at bedtime thereafter and start Zyprexa 2.5 mg q.2 hours p.r.n. psychosis, agitation, max 10 mg in 24 hours. Rest unchanged. MAN Dileep REAGAN MD DR: MOIZ/victor m JOB#: [id number] / [id number]
--- NOTE | 2018-05-24 20:06 | PN ---
DATE: 05/23/2018 PSYCHIATRIC PROGRESS NOTE This late entry 05/23/2018 covers elements not covered in my initial note. SUBJECTIVE: I met with the patient in the evening. The patient slept 7-1/4 hours previous night. She is still anxious, but better than before. REVIEW OF SYSTEMS: No CV, , pulmonary, eye system symptoms on review. MENTAL STATUS EXAM: Oriented reasonably. Speech is coherent, abstraction fair, computation impaired, language function intact, attention span short. Mood and affect remain somewhat anxious, labile. LABORATORY DATA: Reviewed. IMPRESSION: Unchanged from initial note. PLAN: No change from initial note. MAN Dileep REAGAN MD DR: MOIZ/victor m JOB#: [id number] / [id number]
--- NOTE | 2018-05-24 22:38 | PDOC ---
Exam Note: [place] Note: Please also refer to the separate dictated note~for this date of service dictated separately.~Patient seen individually. Discussed the patient with Nursing staff reviewed the chart.~Reviewed interim history and current functioning. Reviewed vital signs,~Labs/ Radiology~and current medications noted below. Continue current treatment with the changes noted in the dictated addendum note Assessment: Vital Signs: Vital Signs Date Time Temp Pulse Resp B/P (MAP) Pulse Ox O2 Delivery O2 Flow Rate FiO2 05/24/18 16:58 96.9 73 18 120/75 (90) 95 05/23/18 16:38 Room Air I&O Intake and Output 05/24/18 07:00 Intake Total 1200 ml Balance 1200 ml Intake Oral 1200 ml Current Medications: Meds: Current Medications Acetaminophen (Tylenol) 650 mg PRN Q4HRS PRN PO FEVER; Start 05/20/18 at 21:45 ; Stop 05/21/18 at 21:44; Status DC Acetaminophen (Tylenol) 650 mg PRN Q6HRS PRN PO PAIN / TEMP; Start 05/21/18 at 01:00 Multi-Ingredient Ointment (Analgesic [place]) 1 best PRN QID PRN TP MUSCLE PAIN; Start 05/21/18 at 01:00 Al Hydroxide/Mg Hydroxide (Mylanta Plus Xs) 15 ml PRN AFTMEALHC PRN PO DYSPEPSIA; Start 05/21/18 at 01:00 Magnesium Hydroxide (Milk Of Magnesia) 2,400 mg PRN QHS PRN PO CONSTIPATION; Start 05/21/18 at 01:00 Atenolol (Tenormin) 25 mg DAILY PO Last administered on 05/24/18at 07:45; Start 05/21/18 at 09:00 Levothyroxine Sodium (Synthroid) 100 mcg DAILY06 PO Last administered on at 05:32; Start 05/21/18 at 06:00 Aspirin (Children'S Aspirin) 81 mg DAILYWBKFT PO Last administered on 07:45; Start 05/21/18 at 08:00 Folic Acid (Folic Acid) 1 mg DAILY PO Last administered on 05/24/18 07:45; Start 05/21/18 at 09:00 Losartan Potassium (Cozaar) 50 mg DAILY PO Last administered on 05/24/18at 07:45 ; Start 05/21/18 at 09:00 Citalopram Hydrobromide (CeleXA) 20 mg DAILY PO Last administered on 05/24/18 07:47; Start 05/21/18 at 09:00 Non-Formulary Medication (Quetiapine Fumarate (Seroquel Xr)) 300 mg DAILY PO ; Start 05/21/18 at 09:00; Stop 05/21/18 at 09:00; Status DC Quetiapine Fumarate (SEROquel) 150 mg BID PO Last administered on 05/22/18at 20: 07; Start 05/21/18 at 09:00; Stop 05/23/18 at 00:01; Status DC Vitamin D (Vitamin D3) 50,000 unit WEEKLY PO Last administered on 05/21/18 20: 17; Start 05/21/18 at 18:30 Risperidone (RisperDAL) 0.5 mg 1X ONCE PO Last administered on 05/23/18 01:53 ; Start 05/23/18 at 01:15; Stop 05/23/18 at 01:21; Status DC Risperidone (RisperDAL) 1 mg HS PO Last administered on 05/24/18 19:50; Start 05/23/18 at 21:00 Olanzapine (ZyPREXA ZYDIS) 2.5 mg PRN Q2HR PRN PO PSYCHOSIS; Start 05/23/18 at 00:00 Trazodone HCl (Desyrel) 50 mg QHS PO Last administered on 05/24/18 19:50; Start 05/23/18 at 21:00 Active Scripts Active Reported Synthroid (Levothyroxine Sodium) 100 Mcg Tablet 100 Mcg PO DAILYAC Seroquel Xr (Quetiapine Fumarate) 300 Mg Tab.er.24h 300 Mg PO DAILY Losartan Potassium 50 Mg Tablet 50 Mg PO DAILY Escitalopram Oxalate 10 Mg Tablet 10 Mg PO DAILY Folic Acid 1 Mg Tablet 1 Mg PO DAILY Atenolol (Atenolol) 25 Mg Tablet 25 Mg PO DAILY Aspir-Low (Aspirin) 81 Mg Tablet.dr 81 Mg PO DAILY I have reviewed the current psychotropics carefully including drug interactions. Risk benefit ratio favors no change other than as noted in my dictated progress note. Diagnosis: Problems: (1) Dementia with behavioral disturbance (2) Medical clearance for psychiatric admission LENORE REAGAN MD May 24, 2018:38
[2018-05-25] MEDS: LEVOTHYROXINE 100 MCG TABLET PO SCH (05:26)
[2018-05-25 06:03] VITALS: BP 148/86
[2018-05-25] MEDS: ASPIRIN 81 MG TAB.CHEW PO SCH (08:46)
[2018-05-25] MEDS: FOLIC ACID 1 MG TABLET PO SCH (08:46)
[2018-05-25] MEDS: ATENOLOL 25 MG TABLET PO SCH (08:46)
[2018-05-25] MEDS: CITALOPRAM 20 MG TABLET. PO SCH (08:46)
[2018-05-25] MEDS: LOSARTAN 50 MG TABLET. PO SCH (08:46)
[2018-05-25 16:15] VITALS: BP 134/79
[2018-05-25] MEDS: traZODone 50 MG TABLET. PO SCH (19:29)
[2018-05-25] MEDS: MIRTAZAPINE 7.5 MG TABLET. PO SCH (19:33)
[2018-05-25] MEDS: risperiDONE 1 MG TABLET. PO SCH (19:33)
--- NOTE | 2018-05-25 21:49 | PN ---
DATE: 05/24/2018 PSYCHIATRIC PROGRESS NOTE This late entry 05/24/2018 covers elements not covered in my initial note. SUBJECTIVE: I met with the patient in the evening. The patient slept 6-1/2 hours previous night. Overall, she states she is doing better, less paranoid, less anxious, but still fidgeting with her fingers as I met with her. REVIEW OF SYSTEMS: No CV, , pulmonary, eye, ENT system symptoms on review. Reliability varies. MENTAL STATUS EXAM: Oriented to herself and situation. Speech has some latency, coherent and at times pressured. Abstraction fair, computation impaired, language function intact, attention span short. Mood and affect somewhat anxious, labile, but improved. LABORATORY DATA: Reviewed. IMPRESSION: Unchanged from initial note. PLAN: Get records from [facility]. Rest unchanged including Risperdal in place of Seroquel. MAN Dileep REAGAN MD DR: MOIZ/victor m JOB#: [id number] / [id number]
--- NOTE | 2018-05-25 22:55 | PDOC ---
Exam Note: [place] Note: Please also refer to the separate dictated note~for this date of service dictated separately.~Patient seen individually. Discussed the patient with Nursing staff reviewed the chart.~Reviewed interim history and current functioning. Reviewed vital signs,~Labs/ Radiology~and current medications noted below. Continue current treatment with the changes noted in the dictated addendum note Assessment: Vital Signs: Vital Signs Date Time Temp Pulse Resp B/P (MAP) Pulse Ox O2 Delivery O2 Flow Rate FiO2 05/25/18 16:15 97.7 85 24 134/79 (97) 97 Room Air I&O Intake and Output 05/25/18 07:00 Intake Total 1200 ml Balance 1200 ml Intake Oral 1200 ml Current Medications: Meds: Current Medications Acetaminophen (Tylenol) 650 mg PRN Q4HRS PRN PO FEVER; Start 05/20/18 at 21:45 ; Stop 05/21/18 at 21:44; Status DC Acetaminophen (Tylenol) 650 mg PRN Q6HRS PRN PO PAIN / TEMP Last administered on 05/25/18at 01:50; Start 05/21/18 at 01:00 Multi-Ingredient Ointment (Analgesic [place]) 1 best PRN QID PRN TP MUSCLE PAIN; Start 05/21/18 at 01:00 Al Hydroxide/Mg Hydroxide (Mylanta Plus Xs) 15 ml PRN AFTMEALHC PRN PO DYSPEPSIA; Start 05/21/18 at 01:00 Magnesium Hydroxide (Milk Of Magnesia) 2,400 mg PRN QHS PRN PO CONSTIPATION; Start 05/21/18 at 01:00 Atenolol (Tenormin) 25 mg DAILY PO Last administered on 05/25/18at 08:46; Start 05/21/18 at 09:00 Levothyroxine Sodium (Synthroid) 100 mcg DAILY06 PO Last administered on at 05:26; Start 05/21/18 at 06:00 Aspirin (Children'S Aspirin) 81 mg DAILYWBKFT PO Last administered on at 08:46; Start 05/21/18 at 08:00 Folic Acid (Folic Acid) 1 mg DAILY PO Last administered on 05/25/18at 08:46; Start 05/21/18 at 09:00 Losartan Potassium (Cozaar) 50 mg DAILY PO Last administered on 05/25/18 08:46 ; Start 05/21/18 at 09:00 Citalopram Hydrobromide (CeleXA) 20 mg DAILY PO Last administered on 05/25/18 08:46; Start 05/21/18 at 09:00 Non-Formulary Medication (Quetiapine Fumarate (Seroquel Xr)) 300 mg DAILY PO ; Start 05/21/18 at 09:00; Stop 05/21/18 at 09:00; Status DC Quetiapine Fumarate (SEROquel) 150 mg BID PO Last administered on 05/22/18 20: 07; Start 05/21/18 at 09:00; Stop 05/23/18 at 00:01; Status DC Vitamin D (Vitamin D3) 50,000 unit WEEKLY PO Last administered on 05/21/18 20: 17; Start 05/21/18 at 18:30 Risperidone (RisperDAL) 0.5 mg 1X ONCE PO Last administered on 05/23/18 01:53 ; Start 05/23/18 at 01:15; Stop 05/23/18 at 01:21; Status DC Risperidone (RisperDAL) 1 mg HS PO Last administered on 05/24/18 19:50; Start 05/23/18 at 21:00; Stop 05/25/18 at 16:59; Status DC Olanzapine (ZyPREXA ZYDIS) 2.5 mg PRN Q2HR PRN PO PSYCHOSIS; Start 05/23/18 at 00:00 Trazodone HCl (Desyrel) 50 mg QHS PO Last administered on 05/25/18 19:29; Start 05/23/18 at 21:00 Risperidone (RisperDAL) 1.5 mg QHS PO Last administered on 05/25/18 19:33; Start 05/25/18 at 21:00 Mirtazapine (Remeron) 7.5 mg QHS PO Last administered on 05/25/18 19:33; Start 05/25/18 at 21:00 Active Scripts Active Reported Synthroid (Levothyroxine Sodium) 100 Mcg Tablet 100 Mcg PO DAILYAC Seroquel Xr (Quetiapine Fumarate) 300 Mg Tab.er.24h 300 Mg PO DAILY Losartan Potassium 50 Mg Tablet 50 Mg PO DAILY Escitalopram Oxalate 10 Mg Tablet 10 Mg PO DAILY Folic Acid 1 Mg Tablet 1 Mg PO DAILY Atenolol (Atenolol) 25 Mg Tablet 25 Mg PO DAILY Aspir-Low (Aspirin) 81 Mg Tablet. 81 Mg PO DAILY I have reviewed the current psychotropics carefully including drug interactions. Risk benefit ratio favors no change other than as noted in my dictated progress note. Diagnosis: Problems: (1) Dementia with behavioral disturbance (2) Medical clearance for psychiatric admission LENORE REAGAN MD May 25, 2018 22:55
[2018-05-26] MEDS: LEVOTHYROXINE 100 MCG TABLET PO SCH (05:24)
[2018-05-26 06:01] VITALS: BP 151/83
[2018-05-26] MEDS: LOSARTAN 50 MG TABLET. PO SCH (07:36)
[2018-05-26] MEDS: ASPIRIN 81 MG TAB.CHEW PO SCH (07:36)
[2018-05-26] MEDS: CITALOPRAM 20 MG TABLET. PO SCH (07:36)
[2018-05-26] MEDS: FOLIC ACID 1 MG TABLET PO SCH (07:36)
[2018-05-26] MEDS: ATENOLOL 25 MG TABLET PO SCH (07:37)
[2018-05-26 15:56] VITALS: BP 124/84
[2018-05-26 19:09] LABS: THYROXINE 5.6 ug/dL (4.5-12.0)
[2018-05-26] MEDS: MIRTAZAPINE 7.5 MG TABLET. PO SCH (19:38)
[2018-05-26] MEDS: risperiDONE 1 MG TABLET. PO SCH (19:39)
[2018-05-26] MEDS: traZODone 50 MG TABLET. PO SCH (19:39)
--- NOTE | 2018-05-26 20:17 | PN ---
DATE: 05/25/2018 PSYCHIATRIC NOTES This is a late entry 05/25/2018 covers elements not covered in my initial note. SUBJECTIVE: I met with the patient in the evening. The patient is compliant with her medication, slept 4 hours previous night, anxious, fidgety, restless, but subjectively feels she is doing better. Still somewhat paranoid, but improved. REVIEW OF SYSTEMS: No CV, , pulmonary, eye system symptoms on review. MENTAL STATUS EXAM: The patient is reasonably oriented. Speech is coherent, abstraction fair, computation impaired, language function intact. Mood and affect is somewhat improved. LABORATORY DATA: Reviewed. IMPRESSION: Bipolar 1 disorder, mixed with psychotic features; anxiety disorder, unspecified; mild cognitive impairment. PLAN: Continue current psychotropics. Increase Risperdal from 1 mg at bedtime to 1.5 mg at bedtime, start Remeron 7.5 mg at bedtime for insomnia, rest unchanged. MAN Dileep REAGAN MD DR: MOIZ/victor m JOB#: [id number] / [id number]
--- NOTE | 2018-05-26 22:58 | PDOC ---
Exam Note: [place] Note: Please also refer to the separate dictated note~for this date of service dictated separately.~Patient seen individually. Discussed the patient with Nursing staff reviewed the chart.~Reviewed interim history and current functioning. Reviewed vital signs,~Labs/ Radiology~and current medications noted below. Continue current treatment with the changes noted in the dictated addendum note Assessment: Vital Signs: Vital Signs Date Time Temp Pulse Resp B/P (MAP) Pulse Ox O2 Delivery O2 Flow Rate FiO2 05/26/18 15:56 97.6 79 18 124/84 (97) 96 05/25/18 16:15 Room Air I&O Intake and Output 05/26/18 06:59 Intake Total 1200 ml Balance 1200 ml Intake Oral 1200 ml Labs: Laboratory Tests Test 05/26/18 06:20 Free Thyroxine 0.96 ng/dL (0.76-1.46) Thyroxine (T4) 5.6 ug/dL (4.5-12.0) Total Triiodothyronine (TT3) 65 ng/dL (71-180) L Current Medications: Meds: Current Medications Acetaminophen (Tylenol) 650 mg PRN Q4HRS PRN PO FEVER; Start 05/20/18 at 21:45 ; Stop 05/21/18 at 21:44; Status DC Acetaminophen (Tylenol) 650 mg PRN Q6HRS PRN PO PAIN / TEMP Last administered on 05/25/18at 01:50; Start 05/21/18 at 01:00 Multi-Ingredient Ointment (Analgesic [place]) 1 best PRN QID PRN TP MUSCLE PAIN; Start 05/21/18 at 01:00 Al Hydroxide/Mg Hydroxide (Mylanta Plus Xs) 15 ml PRN AFTMEALHC PRN PO DYSPEPSIA; Start 05/21/18 at 01:00 Magnesium Hydroxide (Milk Of Magnesia) 2,400 mg PRN QHS PRN PO CONSTIPATION; Start 05/21/18 at 01:00 Atenolol (Tenormin) 25 mg DAILY PO Last administered on 05/26/18at 07:37; Start 05/21/18 at 09:00 Levothyroxine Sodium (Synthroid) 100 mcg DAILY06 PO Last administered on at 05:24; Start 05/21/18 at 06:00 Aspirin (Children'S Aspirin) 81 mg DAILYWBKFT PO Last administered on 07:36; Start 05/21/18 at 08:00 Folic Acid (Folic Acid) 1 mg DAILY PO Last administered on 05/26/18 07:36; Start 05/21/18 at 09:00 Losartan Potassium (Cozaar) 50 mg DAILY PO Last administered on 05/26/18 07:36 ; Start 05/21/18 at 09:00 Citalopram Hydrobromide (CeleXA) 20 mg DAILY PO Last administered on 05/26/18 07:36; Start 05/21/18 at 09:00 Non-Formulary Medication (Quetiapine Fumarate (Seroquel Xr)) 300 mg DAILY PO ; Start 05/21/18 at 09:00; Stop 05/21/18 at 09:00; Status DC Quetiapine Fumarate (SEROquel) 150 mg BID PO Last administered on 05/22/18 20: 07; Start 05/21/18 at 09:00; Stop 05/23/18 at 00:01; Status DC Vitamin D (Vitamin D3) 50,000 unit WEEKLY PO Last administered on 05/21/18 20: 17; Start 05/21/18 at 18:30 Risperidone (RisperDAL) 0.5 mg 1X ONCE PO Last administered on 05/23/18 01:53 ; Start 05/23/18 at 01:15; Stop 05/23/18 at 01:21; Status DC Risperidone (RisperDAL) 1 mg HS PO Last administered on 05/24/18 19:50; Start 05/23/18 at 21:00; Stop 05/25/18 at 16:59; Status DC Olanzapine (ZyPREXA ZYDIS) 2.5 mg PRN Q2HR PRN PO PSYCHOSIS; Start 05/23/18 at 00:00 Trazodone HCl (Desyrel) 50 mg QHS PO Last administered on 05/26/18 19:39; Start 05/23/18 at 21:00 Risperidone (RisperDAL) 1.5 mg QHS PO Last administered on 05/26/18 19:39; Start 05/25/18 at 21:00 Mirtazapine (Remeron) 7.5 mg QHS PO Last administered on 3/27/19at 19:38; Start 05/25/18 at 21:00 Active Scripts Active Reported Synthroid (Levothyroxine Sodium) 100 Mcg Tablet 100 Mcg PO DAILYAC Seroquel Xr (Quetiapine Fumarate) 300 Mg Tab.er.24h 300 Mg PO DAILY Losartan Potassium 50 Mg Tablet 50 Mg PO DAILY Escitalopram Oxalate 10 Mg Tablet 10 Mg PO DAILY Folic Acid 1 Mg Tablet 1 Mg PO DAILY Atenolol (Atenolol) 25 Mg Tablet 25 Mg PO DAILY Aspir-Low (Aspirin) 81 Mg Tablet. 81 Mg PO DAILY I have reviewed the current psychotropics carefully including drug interactions. Risk benefit ratio favors no change other than as noted in my dictated progress note. Diagnosis: Problems: (1) Dementia with behavioral disturbance (2) Medical clearance for psychiatric admission LENORE REAGAN MD May 26, 2018 22:58
[2018-05-27] MEDS: LEVOTHYROXINE 100 MCG TABLET PO SCH (06:00)
[2018-05-27 06:17] VITALS: BP 136/68
[2018-05-27] MEDS: CITALOPRAM 20 MG TABLET. PO SCH (07:28)
[2018-05-27] MEDS: FOLIC ACID 1 MG TABLET PO SCH (07:28)
[2018-05-27] MEDS: ASPIRIN 81 MG TAB.CHEW PO SCH (07:28)
[2018-05-27] MEDS: ATENOLOL 25 MG TABLET PO SCH (07:29)
[2018-05-27] MEDS: LOSARTAN 50 MG TABLET. PO SCH (07:29)
[2018-05-27 16:13] VITALS: BP 134/81
[2018-05-27] MEDS: traZODone 50 MG TABLET. PO SCH (19:43)
[2018-05-27] MEDS: risperiDONE 1 MG TABLET. PO SCH (19:43)
[2018-05-27] MEDS: MIRTAZAPINE 7.5 MG TABLET. PO SCH (19:43)
--- NOTE | 2018-05-27 22:34 | PDOC ---
Exam Note: [place] Note: Please also refer to the separate dictated note~for this date of service dictated separately.~Patient seen individually. Discussed the patient with Nursing staff reviewed the chart.~Reviewed interim history and current functioning. Reviewed vital signs,~Labs/ Radiology~and current medications noted below. Continue current treatment with the changes noted in the dictated addendum note Assessment: Vital Signs: Vital Signs Date Time Temp Pulse Resp B/P (MAP) Pulse Ox O2 Delivery O2 Flow Rate FiO2 05/27/18 16:13 97.3 76 20 134/81 (98) 97 Room Air I&O Intake and Output 05/27/18 06:59 Intake Total 1440 ml Balance 1440 ml Intake Oral 1440 ml # Voids 1 Current Medications: Meds: Current Medications Acetaminophen (Tylenol) 650 mg PRN Q4HRS PRN PO FEVER; Start 05/20/18 at 21:45 ; Stop 05/21/18 at 21:44; Status DC Acetaminophen (Tylenol) 650 mg PRN Q6HRS PRN PO PAIN / TEMP Last administered on 05/25/18at 01:50; Start 05/21/18 at 01:00 Multi-Ingredient Ointment (Analgesic [place]) 1 best PRN QID PRN TP MUSCLE PAIN; Start 05/21/18 at 01:00 Al Hydroxide/Mg Hydroxide (Mylanta Plus Xs) 15 ml PRN AFTMEALHC PRN PO DYSPEPSIA; Start 05/21/18 at 01:00 Magnesium Hydroxide (Milk Of Magnesia) 2,400 mg PRN QHS PRN PO CONSTIPATION; Start 05/21/18 at 01:00 Atenolol (Tenormin) 25 mg DAILY PO Last administered on 05/27/18at 07:29; Start 05/21/18 at 09:00 Levothyroxine Sodium (Synthroid) 100 mcg DAILY06 PO Last administered on at 06:00; Start 05/21/18 at 06:00 Aspirin (Children'S Aspirin) 81 mg DAILYWBKFT PO Last administered on at 07:28; Start 05/21/18 at 08:00 Folic Acid (Folic Acid) 1 mg DAILY PO Last administered on 05/27/18at 07:28; Start 05/21/18 at 09:00 Losartan Potassium (Cozaar) 50 mg DAILY PO Last administered on 05/27/18 07:29 ; Start 05/21/18 at 09:00 Citalopram Hydrobromide (CeleXA) 20 mg DAILY PO Last administered on 05/27/18 07:28; Start 05/21/18 at 09:00 Non-Formulary Medication (Quetiapine Fumarate (Seroquel Xr)) 300 mg DAILY PO ; Start 05/21/18 at 09:00; Stop 05/21/18 at 09:00; Status DC Quetiapine Fumarate (SEROquel) 150 mg BID PO Last administered on 05/22/18 20: 07; Start 05/21/18 at 09:00; Stop 05/23/18 at 00:01; Status DC Vitamin D (Vitamin D3) 50,000 unit WEEKLY PO Last administered on 05/21/18 20: 17; Start 05/21/18 at 18:30 Risperidone (RisperDAL) 0.5 mg 1X ONCE PO Last administered on 05/23/18 01:53 ; Start 05/23/18 at 01:15; Stop 05/23/18 at 01:21; Status DC Risperidone (RisperDAL) 1 mg HS PO Last administered on 05/24/18 19:50; Start 05/23/18 at 21:00; Stop 05/25/18 at 16:59; Status DC Olanzapine (ZyPREXA ZYDIS) 2.5 mg PRN Q2HR PRN PO PSYCHOSIS; Start 05/23/18 at 00:00 Trazodone HCl (Desyrel) 50 mg QHS PO Last administered on 05/27/18 19:43; Start 05/23/18 at 21:00 Risperidone (RisperDAL) 1.5 mg QHS PO Last administered on 05/27/18 19:43; Start 05/25/18 at 21:00 Mirtazapine (Remeron) 7.5 mg QHS PO Last administered on 05/27/18 19:43; Start 05/25/18 at 21:00 Active Scripts Active Reported Synthroid (Levothyroxine Sodium) 100 Mcg Tablet 100 Mcg PO DAILYAC Seroquel Xr (Quetiapine Fumarate) 300 Mg Tab.er.24h 300 Mg PO DAILY Losartan Potassium 50 Mg Tablet 50 Mg PO DAILY Escitalopram Oxalate 10 Mg Tablet 10 Mg PO DAILY Folic Acid 1 Mg Tablet 1 Mg PO DAILY Atenolol (Atenolol) 25 Mg Tablet 25 Mg PO DAILY Aspir-Low (Aspirin) 81 Mg Tablet. 81 Mg PO DAILY I have reviewed the current psychotropics carefully including drug interactions. Risk benefit ratio favors no change other than as noted in my dictated progress note. Diagnosis: Problems: (1) Dementia with behavioral disturbance (2) Medical clearance for psychiatric admission LENORE REAGAN MD May 27, 2018 22:34
[2018-05-28] MEDS: LEVOTHYROXINE 100 MCG TABLET PO SCH (05:00)
[2018-05-28 05:51] VITALS: BP 120/76
[2018-05-28 06:47] LABS: BASO % 1 % (0-3); EOS # 0.1 x10^3/uL (0.0-0.7); EOS % 2 % (0-3); HEMATOCRIT 39.7 % (36.0-47.0); HEMOGLOBIN 13.3 g/dL (12.0-15.5); LYMPH # 1.8 x10^3/uL (1.0-4.8); LYMPH % 36 % (24-48); MEAN CORPUSCULAR HEMOGLOBIN 28 pg (25-35); MEAN CORPUSCULAR HGB CONC 34 g/dL (31-37); MEAN CORPUSCULAR VOLUME 83 fL (79-100); MONO # 0.4 x10^3/uL (0.0-1.1); MONO % 8 % (0-9); NEUT # 2.7 x10^3uL (1.8-7.7); NEUT % 54 % (31-73); PLATELET COUNT 202 x10^3/uL (140-400); RED BLOOD COUNT 4.77 x10^6/uL (3.50-5.40); RED CELL DISTRIBUTION WIDTH 14.4 % (11.5-14.5); WHITE BLOOD COUNT 5.1 x10^3/uL (4.0-11.0)
[2018-05-28 07:04] LABS: ALBUMIN 3.4 g/dL (3.4-5.0); ALBUMIN/GLOBULIN RATIO 0.9 (1.0-1.7); CALCIUM 8.9 mg/dL (8.5-10.1); CREATININE 1.7 mg/dL (0.6-1.0); GFR 29.6; MAGNESIUM 1.9 mg/dL (1.8-2.4); POTASSIUM 4.2 mmol/L (3.5-5.1); TOTAL BILIRUBIN 0.4 mg/dL (0.2-1.0); TOTAL PROTEIN 7.4 g/dL (6.4-8.2)
[2018-05-28] MEDS: ASPIRIN 81 MG TAB.CHEW PO SCH (08:32)
[2018-05-28] MEDS: ATENOLOL 25 MG TABLET PO SCH (08:32)
[2018-05-28] MEDS: FOLIC ACID 1 MG TABLET PO SCH (08:33)
[2018-05-28] MEDS: CITALOPRAM 20 MG TABLET. PO SCH (08:33)
[2018-05-28] MEDS: CHOLECALCIFEROL (VITAMIN D3) 50,000 UNIT CAPSULE PO SCH (08:33)
[2018-05-28] MEDS: LOSARTAN 50 MG TABLET. PO SCH (08:34)
[2018-05-28 15:57] VITALS: BP 115/68
[2018-05-28] MEDS: MIRTAZAPINE 7.5 MG TABLET. PO SCH (20:11)
[2018-05-28] MEDS: risperiDONE 1 MG TABLET. PO SCH (20:12)
[2018-05-28] MEDS: traZODone 50 MG TABLET. PO SCH (20:13)
--- NOTE | 2018-05-28 20:37 | PN ---
DATE: 05/26/2018 PSYCHIATRIC PROGRESS NOTE This late entry 05/26/2018 covers elements not covered in my initial note. SUBJECTIVE: I met with the patient in the evening. The patient slept 6-1/2 hours previous night. For the most part, she is doing better, still somewhat anxious, but less psychotic. REVIEW OF SYSTEMS: No CV, , pulmonary, eye system symptoms on review. MENTAL STATUS EXAM: The patient is reasonably oriented. Speech is coherent, does have short term memory deficits. Abstraction fair, computation impaired. No suicidal or homicidal ideation. LABORATORY DATA: Reviewed. IMPRESSION: Unchanged from initial note. PLAN: No change from initial note, may need to adjust Risperdal in due course. MAN Dileep REAGAN MD DR: MOIZ/victor m JOB#: [id number] / [id number]
--- NOTE | 2018-05-28 20:39 | PN ---
DATE: 05/27/2018 PSYCHIATRIC PROGRESS NOTE This late entry 05/27/2018 covers elements not covered in my initial note. SUBJECTIVE: I met with the patient in the evening and the patient was staffed at a treatment team meeting with the entire team and the patient attended the conference. We discussed her history progress and discussed getting historical information fromVandana, her family caseworker with the [facility]. REVIEW OF SYSTEMS: Ambulation impaired with walker. No CV, , pulmonary, eye system symptoms on review. MENTAL STATUS EXAM: The patient is reasonably oriented. Speech is coherent, has some latency. Abstraction fair, computation impaired, language function intact, attention span short. Mood and affect is improved, less paranoid, less anxious. LABORATORY DATA: Reviewed. IMPRESSION: Unchanged from initial note. PLAN: No change from initial note. MAN Dileep REAGAN MD DR: MOIZ/victor m JOB#: [id number] / [id number]
--- NOTE | 2018-05-28 22:31 | PDOC ---
Exam Note: [place] Note: Please also refer to the separate dictated note~for this date of service dictated separately.~Patient seen individually. Discussed the patient with Nursing staff reviewed the chart.~Reviewed interim history and current functioning. Reviewed vital signs,~Labs/ Radiology~and current medications noted below. Continue current treatment with the changes noted in the dictated addendum note Assessment: Vital Signs: Vital Signs Date Time Temp Pulse Resp B/P (MAP) Pulse Ox O2 Delivery O2 Flow Rate FiO2 05/28/18 15:57 98.4 68 19 115/68 (84) 95 Room Air 05/28/18 05:51 1.5 I&O Intake and Output 05/28/18 06:59 Intake Total 1080 ml Balance 1080 ml Intake Oral 1080 ml # Voids 1 Labs: Laboratory Tests Test 05/28/18 06:33 White Blood Count 5.1 x10^3/uL (4.0-11.0) Red Blood Count 4.77 x10^6/uL (3.50-5.40) Hemoglobin 13.3 g/dL (12.0-15.5) Hematocrit 39.7 % (36.0-47.0) Mean Corpuscular Volume 83 fL (79-100) Mean Corpuscular Hemoglobin 28 pg (25-35) Mean Corpuscular Hemoglobin Concent 34 g/dL (31-37) Red Cell Distribution Width 14.4 % (11.5-14.5) Platelet Count 202 x10^3/uL (140-400) Neutrophils (%) (Auto) 54 % (31-73) Lymphocytes (%) (Auto) 36 % (24-48) Monocytes (%) (Auto) 8 % (0-9) Eosinophils (%) (Auto) 2 % (0-3) Basophils (%) (Auto) 1 % (0-3) Neutrophils # (Auto) 2.7 x10^3uL (1.8-7.7) Lymphocytes # (Auto) 1.8 x10^3/uL (1.0-4.8) Monocytes # (Auto) 0.4 x10^3/uL (0.0-1.1) Eosinophils # (Auto) 0.1 x10^3/uL (0.0-0.7) Basophils # (Auto) 0.0 x10^3/uL (0.0-0.2) Sodium Level 140 mmol/L (136-145) Potassium Level 4.2 mmol/L (3.5-5.1) Chloride Level 104 mmol/L (98-107) Carbon Dioxide Level 27 mmol/L (21-32) Anion Gap 9 (6-14) Blood Urea Nitrogen 23 mg/dL (7-20) H Creatinine 1.7 mg/dL (0.6-1.0) H Estimated GFR (Cockcroft-Gault) 29.6 BUN/Creatinine Ratio 14 (6-20) Glucose Level 98 mg/dL (70-99) Calcium Level 8.9 mg/dL (8.5-10.1) Magnesium Level 1.9 mg/dL (1.8-2.4) Total Bilirubin 0.4 mg/dL (0.2-1.0) Aspartate Amino Transferase (AST) 26 U/L (15-37) Alanine Aminotransferase (ALT) 20 U/L (14-59) Alkaline Phosphatase 62 U/L (46-116) Total Protein 7.4 g/dL (6.4-8.2) Albumin 3.4 g/dL (3.4-5.0) Albumin/Globulin Ratio 0.9 (1.0-1.7) L Current Medications: Meds: Current Medications Acetaminophen (Tylenol) 650 mg PRN Q4HRS PRN PO FEVER; Start 05/20/18 at 21:45 ; Stop 05/21/18 at 21:44; Status DC Acetaminophen (Tylenol) 650 mg PRN Q6HRS PRN PO PAIN / TEMP Last administered on 05/25/18at 01:50; Start 05/21/18 at 01:00 Multi-Ingredient Ointment (Analgesic [place]) 1 best PRN QID PRN TP MUSCLE PAIN; Start 05/21/18 at 01:00 Al Hydroxide/Mg Hydroxide (Mylanta Plus Xs) 15 ml PRN AFTMEALHC PRN PO DYSPEPSIA; Start 05/21/18 at 01:00 Magnesium Hydroxide (Milk Of Magnesia) 2,400 mg PRN QHS PRN PO CONSTIPATION; Start 05/21/18 at 01:00 Atenolol (Tenormin) 25 mg DAILY PO Last administered on 05/28/18at 08:32; Start 05/21/18 at 09:00 Levothyroxine Sodium (Synthroid) 100 mcg DAILY06 PO Last administered on 05:00; Start 05/21/18 at 06:00 Aspirin (Children'S Aspirin) 81 mg DAILYWBKFT PO Last administered on 08:32; Start 05/21/18 at 08:00 Folic Acid (Folic Acid) 1 mg DAILY PO Last administered on 05/28/18 08:33; Start 05/21/18 at 09:00 Losartan Potassium (Cozaar) 50 mg DAILY PO Last administered on 05/28/18 08:34 ; Start 05/21/18 at 09:00 Citalopram Hydrobromide (CeleXA) 20 mg DAILY PO Last administered on 05/28/18 08:33; Start 05/21/18 at 09:00 Non-Formulary Medication (Quetiapine Fumarate (Seroquel Xr)) 300 mg DAILY PO ; Start 05/21/18 at 09:00; Stop 05/21/18 at 09:00; Status DC Quetiapine Fumarate (SEROquel) 150 mg BID PO Last administered on 05/22/18 20: 07; Start 05/21/18 at 09:00; Stop 05/23/18 at 00:01; Status DC Vitamin D (Vitamin D3) 50,000 unit WEEKLY PO Last administered on 05/28/18 08: 33; Start 05/21/18 at 18:30 Risperidone (RisperDAL) 0.5 mg 1X ONCE PO Last administered on 05/23/18at 01:53 ; Start 05/23/18 at 01:15; Stop 05/23/18 at 01:21; Status DC Risperidone (RisperDAL) 1 mg HS PO Last administered on 05/24/18 19:50; Start 05/23/18 at 21:00; Stop 05/25/18 at 16:59; Status DC Olanzapine (ZyPREXA ZYDIS) 2.5 mg PRN Q2HR PRN PO PSYCHOSIS; Start 05/23/18 at 00:00 Trazodone HCl (Desyrel) 50 mg QHS PO Last administered on 05/28/18at 20:13; Start 05/23/18 at 21:00 Risperidone (RisperDAL) 1.5 mg QHS PO Last administered on 05/28/18at 20:12; Start 05/25/18 at 21:00 Mirtazapine (Remeron) 7.5 mg QHS PO Last administered on 05/28/18at 20:11; Start 05/25/18 at 21:00 Active Scripts Active Reported Synthroid (Levothyroxine Sodium) 100 Mcg Tablet 100 Mcg PO DAILYAC Seroquel Xr (Quetiapine Fumarate) 300 Mg Tab.er.24h 300 Mg PO DAILY Losartan Potassium 50 Mg Tablet 50 Mg PO DAILY Escitalopram Oxalate 10 Mg Tablet 10 Mg PO DAILY Folic Acid 1 Mg Tablet 1 Mg PO DAILY Atenolol (Atenolol) 25 Mg Tablet 25 Mg PO DAILY Aspir-Low (Aspirin) 81 Mg Tablet. 81 Mg PO DAILY I have reviewed the current psychotropics carefully including drug interactions. Risk benefit ratio favors no change other than as noted in my dictated progress note. Diagnosis: Problems: (1) Dementia with behavioral disturbance (2) Medical clearance for psychiatric admission LENORE REAGAN MD May 28, 2018 22:31
[2018-05-29] MEDS: LEVOTHYROXINE 100 MCG TABLET PO SCH (05:48)
[2018-05-29 06:01] VITALS: BP 169/94
[2018-05-29] MEDS: ASPIRIN 81 MG TAB.CHEW PO SCH (08:04)
[2018-05-29] MEDS: FOLIC ACID 1 MG TABLET PO SCH (08:04)
[2018-05-29] MEDS: CITALOPRAM 20 MG TABLET. PO SCH (08:04)
[2018-05-29] MEDS: ATENOLOL 25 MG TABLET PO SCH (08:04)
[2018-05-29] MEDS: LOSARTAN 50 MG TABLET. PO SCH (08:04)
[2018-05-29 17:20] VITALS: BP 142/80
[2018-05-29] MEDS: traZODone 50 MG TABLET. PO SCH (19:40)
[2018-05-29] MEDS: MIRTAZAPINE 7.5 MG TABLET. PO SCH (19:40)
[2018-05-29] MEDS: risperiDONE 1 MG TABLET. PO SCH (19:41)
--- NOTE | 2018-05-29 22:31 | PDOC ---
Exam Note: [place] Note: Please also refer to the separate dictated note~for this date of service dictated separately.~Patient seen individually. Discussed the patient with Nursing staff reviewed the chart.~Reviewed interim history and current functioning. Reviewed vital signs,~Labs/ Radiology~and current medications noted below. Continue current treatment with the changes noted in the dictated addendum note Assessment: Vital Signs: Vital Signs Date Time Temp Pulse Resp B/P (MAP) Pulse Ox O2 Delivery O2 Flow Rate FiO2 05/29/18 17:20 98.4 77 20 142/80 (100) 97 05/28/18 15:57 Room Air 05/28/18 05:51 1.5 I&O Intake and Output 05/29/18 07:00 Intake Total 1080 ml Balance 1080 ml Intake Oral 1080 ml # Voids 1 Current Medications: Meds: Current Medications Acetaminophen (Tylenol) 650 mg PRN Q4HRS PRN PO FEVER; Start 05/20/18 at 21:45 ; Stop 05/21/18 at 21:44; Status DC Acetaminophen (Tylenol) 650 mg PRN Q6HRS PRN PO PAIN / TEMP Last administered on 05/25/18at 01:50; Start 05/21/18 at 01:00 Multi-Ingredient Ointment (Analgesic [place]) 1 best PRN QID PRN TP MUSCLE PAIN; Start 05/21/18 at 01:00 Al Hydroxide/Mg Hydroxide (Mylanta Plus Xs) 15 ml PRN AFTMEALHC PRN PO DYSPEPSIA; Start 05/21/18 at 01:00 Magnesium Hydroxide (Milk Of Magnesia) 2,400 mg PRN QHS PRN PO CONSTIPATION; Start 05/21/18 at 01:00 Atenolol (Tenormin) 25 mg DAILY PO Last administered on 05/29/18at 08:04; Start 05/21/18 at 09:00 Levothyroxine Sodium (Synthroid) 100 mcg DAILY06 PO Last administered on at 05:48; Start 05/21/18 at 06:00 Aspirin (Children'S Aspirin) 81 mg DAILYWBKFT PO Last administered on at 08:04; Start 05/21/18 at 08:00 Folic Acid (Folic Acid) 1 mg DAILY PO Last administered on 05/29/18at 08:04; Start 05/21/18 at 09:00 Losartan Potassium (Cozaar) 50 mg DAILY PO Last administered on 05/29/18 08:04 ; Start 05/21/18 at 09:00 Citalopram Hydrobromide (CeleXA) 20 mg DAILY PO Last administered on 05/29/18 08:04; Start 05/21/18 at 09:00 Non-Formulary Medication (Quetiapine Fumarate (Seroquel Xr)) 300 mg DAILY PO ; Start 05/21/18 at 09:00; Stop 05/21/18 at 09:00; Status DC Quetiapine Fumarate (SEROquel) 150 mg BID PO Last administered on 05/22/18 20: 07; Start 05/21/18 at 09:00; Stop 05/23/18 at 00:01; Status DC Vitamin D (Vitamin D3) 50,000 unit WEEKLY PO Last administered on 05/28/18 08: 33; Start 05/21/18 at 18:30 Risperidone (RisperDAL) 0.5 mg 1X ONCE PO Last administered on 05/23/18 01:53 ; Start 05/23/18 at 01:15; Stop 05/23/18 at 01:21; Status DC Risperidone (RisperDAL) 1 mg HS PO Last administered on 05/24/18 19:50; Start 05/23/18 at 21:00; Stop 05/25/18 at 16:59; Status DC Olanzapine (ZyPREXA ZYDIS) 2.5 mg PRN Q2HR PRN PO PSYCHOSIS; Start 05/23/18 at 00:00 Trazodone HCl (Desyrel) 50 mg QHS PO Last administered on 05/29/18 19:40; Start 05/23/18 at 21:00 Risperidone (RisperDAL) 1.5 mg QHS PO Last administered on 05/29/18 19:41; Start 05/25/18 at 21:00 Mirtazapine (Remeron) 7.5 mg QHS PO Last administered on 05/29/18 19:40; Start 05/25/18 at 21:00 Active Scripts Active Reported Synthroid (Levothyroxine Sodium) 100 Mcg Tablet 100 Mcg PO DAILYAC Seroquel Xr (Quetiapine Fumarate) 300 Mg Tab.er.24h 300 Mg PO DAILY Losartan Potassium 50 Mg Tablet 50 Mg PO DAILY Escitalopram Oxalate 10 Mg Tablet 10 Mg PO DAILY Folic Acid 1 Mg Tablet 1 Mg PO DAILY Atenolol (Atenolol) 25 Mg Tablet 25 Mg PO DAILY Aspir-Low (Aspirin) 81 Mg Tablet.dr 81 Mg PO DAILY I have reviewed the current psychotropics carefully including drug interactions. Risk benefit ratio favors no change other than as noted in my dictated progress note. Diagnosis: Problems: (1) Dementia with behavioral disturbance (2) Medical clearance for psychiatric admission LENORE REAGAN MD May 29, 2018 22:31
[2018-05-30] MEDS: LEVOTHYROXINE 100 MCG TABLET PO SCH (04:53)
[2018-05-30 06:39] VITALS: BP 118/86
[2018-05-30] MEDS: ASPIRIN 81 MG TAB.CHEW PO SCH (07:42)
[2018-05-30] MEDS: CITALOPRAM 20 MG TABLET. PO SCH (07:42)
[2018-05-30] MEDS: FOLIC ACID 1 MG TABLET PO SCH (07:42)
[2018-05-30] MEDS: ATENOLOL 25 MG TABLET PO SCH (07:43)
[2018-05-30] MEDS: LOSARTAN 50 MG TABLET. PO SCH (07:43)
[2018-05-30 15:47] VITALS: BP 121/70
[2018-05-30] MEDS: risperiDONE 1 MG TABLET. PO SCH (19:23)
[2018-05-30] MEDS: MIRTAZAPINE 7.5 MG TABLET. PO SCH (19:23)
[2018-05-30] MEDS: traZODone 50 MG TABLET. PO SCH (19:23)
--- NOTE | 2018-05-30 22:41 | PDOC ---
Exam Note: [place] Note: Please also refer to the separate dictated note~for this date of service dictated separately.~Patient seen individually. Discussed the patient with Nursing staff reviewed the chart.~Reviewed interim history and current functioning. Reviewed vital signs,~Labs/ Radiology~and current medications noted below. Continue current treatment with the changes noted in the dictated addendum note Assessment: Vital Signs: Vital Signs Date Time Temp Pulse Resp B/P (MAP) Pulse Ox O2 Delivery O2 Flow Rate FiO2 05/30/18 15:47 98.2 85 16 121/70 (87) 96 05/30/18 06:39 Room Air 05/28/18 05:51 1.5 I&O Intake and Output 05/30/18 07:00 Intake Total 1080 ml Balance 1080 ml Intake Oral 1080 ml Current Medications: Meds: Current Medications Acetaminophen (Tylenol) 650 mg PRN Q4HRS PRN PO FEVER; Start 05/20/18 at 21:45 ; Stop 05/21/18 at 21:44; Status DC Acetaminophen (Tylenol) 650 mg PRN Q6HRS PRN PO PAIN / TEMP Last administered on 05/25/18at 01:50; Start 05/21/18 at 01:00 Multi-Ingredient Ointment (Analgesic [place]) 1 best PRN QID PRN TP MUSCLE PAIN; Start 05/21/18 at 01:00 Al Hydroxide/Mg Hydroxide (Mylanta Plus Xs) 15 ml PRN AFTMEALHC PRN PO DYSPEPSIA; Start 05/21/18 at 01:00 Magnesium Hydroxide (Milk Of Magnesia) 2,400 mg PRN QHS PRN PO CONSTIPATION; Start 05/21/18 at 01:00 Atenolol (Tenormin) 25 mg DAILY PO Last administered on 05/30/18at 07:43; Start 05/21/18 at 09:00 Levothyroxine Sodium (Synthroid) 100 mcg DAILY06 PO Last administered on at 04:53; Start 05/21/18 at 06:00 Aspirin (Children'S Aspirin) 81 mg DAILYWBKFT PO Last administered on at 07:42; Start 05/21/18 at 08:00 Folic Acid (Folic Acid) 1 mg DAILY PO Last administered on 05/30/18at 07:42; Start 05/21/18 at 09:00 Losartan Potassium (Cozaar) 50 mg DAILY PO Last administered on 05/30/18 07:43 ; Start 05/21/18 at 09:00 Citalopram Hydrobromide (CeleXA) 20 mg DAILY PO Last administered on 05/30/18 07:42; Start 05/21/18 at 09:00 Non-Formulary Medication (Quetiapine Fumarate (Seroquel Xr)) 300 mg DAILY PO ; Start 05/21/18 at 09:00; Stop 05/21/18 at 09:00; Status DC Quetiapine Fumarate (SEROquel) 150 mg BID PO Last administered on 05/22/18 20: 07; Start 05/21/18 at 09:00; Stop 05/23/18 at 00:01; Status DC Vitamin D (Vitamin D3) 50,000 unit WEEKLY PO Last administered on 05/28/18 08: 33; Start 05/21/18 at 18:30 Risperidone (RisperDAL) 0.5 mg 1X ONCE PO Last administered on 05/23/18 01:53 ; Start 05/23/18 at 01:15; Stop 05/23/18 at 01:21; Status DC Risperidone (RisperDAL) 1 mg HS PO Last administered on 05/24/18 19:50; Start 05/23/18 at 21:00; Stop 05/25/18 at 16:59; Status DC Olanzapine (ZyPREXA ZYDIS) 2.5 mg PRN Q2HR PRN PO PSYCHOSIS; Start 05/23/18 at 00:00 Trazodone HCl (Desyrel) 50 mg QHS PO Last administered on 05/30/18 19:23; Start 05/23/18 at 21:00 Risperidone (RisperDAL) 1.5 mg QHS PO Last administered on 05/30/18 19:23; Start 05/25/18 at 21:00 Mirtazapine (Remeron) 7.5 mg QHS PO Last administered on 05/30/18 19:23; Start 05/25/18 at 21:00 Active Scripts Active Reported Synthroid (Levothyroxine Sodium) 100 Mcg Tablet 100 Mcg PO DAILYAC Seroquel Xr (Quetiapine Fumarate) 300 Mg Tab.er.24h 300 Mg PO DAILY Losartan Potassium 50 Mg Tablet 50 Mg PO DAILY Escitalopram Oxalate 10 Mg Tablet 10 Mg PO DAILY Folic Acid 1 Mg Tablet 1 Mg PO DAILY Atenolol (Atenolol) 25 Mg Tablet 25 Mg PO DAILY Aspir-Low (Aspirin) 81 Mg Tablet.dr 81 Mg PO DAILY I have reviewed the current psychotropics carefully including drug interactions. Risk benefit ratio favors no change other than as noted in my dictated progress note. Diagnosis: Problems: (1) Dementia with behavioral disturbance (2) Medical clearance for psychiatric admission LENORE REAGAN MD May 30, 2018 22:41
[2018-05-31] MEDS: LEVOTHYROXINE 100 MCG TABLET PO SCH (05:26)
[2018-05-31 06:47] VITALS: BP 150/87
[2018-05-31] MEDS: ASPIRIN 81 MG TAB.CHEW PO SCH (08:19)
[2018-05-31] MEDS: LOSARTAN 50 MG TABLET. PO SCH (08:20)
[2018-05-31] MEDS: ATENOLOL 25 MG TABLET PO SCH (08:20)
[2018-05-31] MEDS: CITALOPRAM 20 MG TABLET. PO SCH (08:20)
[2018-05-31] MEDS: FOLIC ACID 1 MG TABLET PO SCH (08:20)
[2018-05-31 16:18] VITALS: BP 136/81
--- NOTE | 2018-05-31 19:56 | PN ---
DATE: 05/28/2018 PSYCHIATRIC PROGRESS NOTE This late entry 05/28/2018 covers elements not covered in my initial note. SUBJECTIVE: I met with the patient in the evening. The patient slept 7-1/2 hours previous night. She has been calmer, compliant with her medications, less anxious, less paranoid. REVIEW OF SYSTEMS: No CV, , pulmonary, eye, ENT system symptoms on review. Reliability fair. MENTAL STATUS EXAM: Oriented reasonably. Speech has some latency, coherent, pressured at times. Abstraction fair, computation impaired, language function intact. Mood and affect showing improvement with improved lability. LABORATORY DATA: Reviewed. IMPRESSION: Unchanged from initial note. PLAN: No change from initial note. MAN Dileep REAGAN MD DR: MOIZ/victor m JOB#: [id number] / [id number]
[2018-05-31] MEDS: traZODone 50 MG TABLET. PO SCH (20:44)
[2018-05-31] MEDS: MIRTAZAPINE 7.5 MG TABLET. PO SCH (20:44)
[2018-05-31] MEDS: risperiDONE 1 MG TABLET. PO SCH (20:44)
--- NOTE | 2018-05-31 21:34 | PN ---
DATE: 05/30/2018 PSYCHIATRIC PROGRESS NOTE This late entry 05/30/2018 covers elements not covered in my initial note. SUBJECTIVE: I met with the patient in the evening. The patient slept 7 hours previous night. She has been doing better, less anxious. REVIEW OF SYSTEMS: No CV, , pulmonary, eye, ENT system symptoms on review. MENTAL STATUS EXAM: Oriented reasonably. Speech is coherent, less pressured. Abstraction fair, computation impaired, language function intact, attention span short. Mood and affect less labile. LABORATORY DATA: Reviewed. IMPRESSION: Unchanged from initial note. PLAN: No change from initial note. MAN Dileep REAGAN MD DR: MOIZ/victor m JOB#: [id number] / [id number]
--- NOTE | 2018-05-31 22:53 | PDOC ---
Exam Note: [place] Note: Please also refer to the separate dictated note~for this date of service dictated separately.~Patient seen individually. Discussed the patient with Nursing staff reviewed the chart.~Reviewed interim history and current functioning. Reviewed vital signs,~Labs/ Radiology~and current medications noted below. Continue current treatment with the changes noted in the dictated addendum note Assessment: Vital Signs: Vital Signs Date Time Temp Pulse Resp B/P (MAP) Pulse Ox O2 Delivery O2 Flow Rate FiO2 05/31/18 16:18 98.0 89 19 136/81 (99) 97 05/30/18 06:39 Room Air 05/28/18 05:51 1.5 I&O Intake and Output 05/31/18 06:59 Intake Total 960 ml Balance 960 ml Intake Oral 960 ml # Voids 1 Current Medications: Meds: Current Medications Acetaminophen (Tylenol) 650 mg PRN Q4HRS PRN PO FEVER; Start 05/20/18 at 21:45 ; Stop 05/21/18 at 21:44; Status DC Acetaminophen (Tylenol) 650 mg PRN Q6HRS PRN PO PAIN / TEMP Last administered on 05/25/18at 01:50; Start 05/21/18 at 01:00 Multi-Ingredient Ointment (Analgesic [place]) 1 best PRN QID PRN TP MUSCLE PAIN; Start 05/21/18 at 01:00 Al Hydroxide/Mg Hydroxide (Mylanta Plus Xs) 15 ml PRN AFTMEALHC PRN PO DYSPEPSIA; Start 05/21/18 at 01:00 Magnesium Hydroxide (Milk Of Magnesia) 2,400 mg PRN QHS PRN PO CONSTIPATION; Start 05/21/18 at 01:00 Atenolol (Tenormin) 25 mg DAILY PO Last administered on 05/31/18at 08:20; Start 05/21/18 at 09:00 Levothyroxine Sodium (Synthroid) 100 mcg DAILY06 PO Last administered on at 05:26; Start 05/21/18 at 06:00 Aspirin (Children'S Aspirin) 81 mg DAILYWBKFT PO Last administered on 05/31/18at 08:19; Start 05/21/18 at 08:00 Folic Acid (Folic Acid) 1 mg DAILY PO Last administered on 05/31/18at 08:20; Start 05/21/18 at 09:00 Losartan Potassium (Cozaar) 50 mg DAILY PO Last administered on 05/31/18 08:20 ; Start 05/21/18 at 09:00 Citalopram Hydrobromide (CeleXA) 20 mg DAILY PO Last administered on 05/31/18 08:20; Start 05/21/18 at 09:00 Non-Formulary Medication (Quetiapine Fumarate (Seroquel Xr)) 300 mg DAILY PO ; Start 05/21/18 at 09:00; Stop 05/21/18 at 09:00; Status DC Quetiapine Fumarate (SEROquel) 150 mg BID PO Last administered on 05/22/18 20: 07; Start 05/21/18 at 09:00; Stop 05/23/18 at 00:01; Status DC Vitamin D (Vitamin D3) 50,000 unit WEEKLY PO Last administered on 05/28/18at 08: 33; Start 05/21/18 at 18:30 Risperidone (RisperDAL) 0.5 mg 1X ONCE PO Last administered on 05/23/18 01:53 ; Start 05/23/18 at 01:15; Stop 05/23/18 at 01:21; Status DC Risperidone (RisperDAL) 1 mg HS PO Last administered on 05/24/18 19:50; Start 05/23/18 at 21:00; Stop 05/25/18 at 16:59; Status DC Olanzapine (ZyPREXA ZYDIS) 2.5 mg PRN Q2HR PRN PO PSYCHOSIS; Start 05/23/18 at 00:00 Trazodone HCl (Desyrel) 50 mg QHS PO Last administered on 05/31/18 20:44; Start 05/23/18 at 21:00 Risperidone (RisperDAL) 1.5 mg QHS PO Last administered on 05/31/18 20:44; Start 05/25/18 at 21:00 Mirtazapine (Remeron) 7.5 mg QHS PO Last administered on 05/31/18 20:44; Start 05/25/18 at 21:00 Active Scripts Active Reported Synthroid (Levothyroxine Sodium) 100 Mcg Tablet 100 Mcg PO DAILYAC Seroquel Xr (Quetiapine Fumarate) 300 Mg Tab.er.24h 300 Mg PO DAILY Losartan Potassium 50 Mg Tablet 50 Mg PO DAILY Escitalopram Oxalate 10 Mg Tablet 10 Mg PO DAILY Folic Acid 1 Mg Tablet 1 Mg PO DAILY Atenolol (Atenolol) 25 Mg Tablet 25 Mg PO DAILY Aspir-Low (Aspirin) 81 Mg Tablet.dr 81 Mg PO DAILY I have reviewed the current psychotropics carefully including drug interactions. Risk benefit ratio favors no change other than as noted in my dictated progress note. Diagnosis: Problems: (1) Dementia with behavioral disturbance (2) Medical clearance for psychiatric admission LENORE REAGAN MD May 31, 2018 22:53
[2018-06-01] MEDS: LEVOTHYROXINE 100 MCG TABLET PO SCH (05:50)
[2018-06-01 06:04] VITALS: BP 121/76
[2018-06-01] MEDS: CITALOPRAM 20 MG TABLET. PO SCH (08:03)
[2018-06-01] MEDS: ASPIRIN 81 MG TAB.CHEW PO SCH (08:03)
[2018-06-01] MEDS: LOSARTAN 50 MG TABLET. PO SCH (08:03)
[2018-06-01] MEDS: ATENOLOL 25 MG TABLET PO SCH (08:03)
[2018-06-01] MEDS: FOLIC ACID 1 MG TABLET PO SCH (08:04)
[2018-06-01 15:45] VITALS: BP 114/75
[2018-06-01] MEDS: traZODone 50 MG TABLET. PO SCH (20:39)
[2018-06-01] MEDS: MIRTAZAPINE 7.5 MG TABLET. PO SCH (20:40)
[2018-06-01] MEDS: risperiDONE 1 MG TABLET. PO SCH (20:40)
--- NOTE | 2018-06-01 22:37 | PDOC ---
Exam Note: [place] Note: Please also refer to the separate dictated note~for this date of service dictated separately.~Patient seen individually. Discussed the patient with Nursing staff reviewed the chart.~Reviewed interim history and current functioning. Reviewed vital signs,~Labs/ Radiology~and current medications noted below. Continue current treatment with the changes noted in the dictated addendum note Assessment: Vital Signs: Vital Signs Date Time Temp Pulse Resp B/P (MAP) Pulse Ox O2 Delivery O2 Flow Rate FiO2 06/01/18 15:45 98.0 88 17 114/75 (88) 95 Room Air 05/28/18 05:51 1.5 I&O Intake and Output 06/01/18 07:00 Intake Total 840 ml Balance 840 ml Intake Oral 840 ml # Voids 1 # Bowel Movements 2 Current Medications: Meds: Current Medications Acetaminophen (Tylenol) 650 mg PRN Q4HRS PRN PO FEVER; Start 05/20/18 at 21:45 ; Stop 05/21/18 at 21:44; Status DC Acetaminophen (Tylenol) 650 mg PRN Q6HRS PRN PO PAIN / TEMP Last administered on 05/25/18at 01:50; Start 05/21/18 at 01:00 Multi-Ingredient Ointment (Analgesic [place]) 1 best PRN QID PRN TP MUSCLE PAIN; Start 05/21/18 at 01:00 Al Hydroxide/Mg Hydroxide (Mylanta Plus Xs) 15 ml PRN AFTMEALHC PRN PO DYSPEPSIA; Start 05/21/18 at 01:00 Magnesium Hydroxide (Milk Of Magnesia) 2,400 mg PRN QHS PRN PO CONSTIPATION; Start 05/21/18 at 01:00 Atenolol (Tenormin) 25 mg DAILY PO Last administered on 06/01/18 08:03; Start 05/21/18 at 09:00 Levothyroxine Sodium (Synthroid) 100 mcg DAILY06 PO Last administered on 05:50; Start 05/21/18 at 06:00 Aspirin (Children'S Aspirin) 81 mg DAILYWBKFT PO Last administered on 06/01/18 08:03; Start 05/21/18 at 08:00 Folic Acid (Folic Acid) 1 mg DAILY PO Last administered on 06/01/18at 08:04; Start 05/21/18 at 09:00 Losartan Potassium (Cozaar) 50 mg DAILY PO Last administered on 06/01/18 08:03 ; Start 05/21/18 at 09:00 Citalopram Hydrobromide (CeleXA) 20 mg DAILY PO Last administered on 06/01/18 08:03; Start 05/21/18 at 09:00 Non-Formulary Medication (Quetiapine Fumarate (Seroquel Xr)) 300 mg DAILY PO ; Start 05/21/18 at 09:00; Stop 05/21/18 at 09:00; Status DC Quetiapine Fumarate (SEROquel) 150 mg BID PO Last administered on 05/22/18 20: 07; Start 05/21/18 at 09:00; Stop 05/23/18 at 00:01; Status DC Vitamin D (Vitamin D3) 50,000 unit WEEKLY PO Last administered on 05/28/18 08: 33; Start 05/21/18 at 18:30 Risperidone (RisperDAL) 0.5 mg 1X ONCE PO Last administered on 05/23/18 01:53 ; Start 05/23/18 at 01:15; Stop 05/23/18 at 01:21; Status DC Risperidone (RisperDAL) 1 mg HS PO Last administered on 05/24/18 19:50; Start 05/23/18 at 21:00; Stop 05/25/18 at 16:59; Status DC Olanzapine (ZyPREXA ZYDIS) 2.5 mg PRN Q2HR PRN PO PSYCHOSIS; Start 05/23/18 at 00:00 Trazodone HCl (Desyrel) 50 mg QHS PO Last administered on 06/01/18 20:39; Start 05/23/18 at 21:00 Risperidone (RisperDAL) 1.5 mg QHS PO Last administered on 06/01/18 20:40; Start 05/25/18 at 21:00 Mirtazapine (Remeron) 7.5 mg QHS PO Last administered on 06/01/18 20:40; Start 05/25/18 at 21:00 Active Scripts Active Reported Synthroid (Levothyroxine Sodium) 100 Mcg Tablet 100 Mcg PO DAILYAC Seroquel Xr (Quetiapine Fumarate) 300 Mg Tab.er.24h 300 Mg PO DAILY Losartan Potassium 50 Mg Tablet 50 Mg PO DAILY Escitalopram Oxalate 10 Mg Tablet 10 Mg PO DAILY Folic Acid 1 Mg Tablet 1 Mg PO DAILY Atenolol (Atenolol) 25 Mg Tablet 25 Mg PO DAILY Aspir-Low (Aspirin) 81 Mg Tablet.dr 81 Mg PO DAILY I have reviewed the current psychotropics carefully including drug interactions. Risk benefit ratio favors no change other than as noted in my dictated progress note. Diagnosis: Problems: (1) Dementia with behavioral disturbance (2) Medical clearance for psychiatric admission LENORE REAGAN MD Jun 01, 2018 22:36
--- NOTE | 2018-06-01 23:37 | PN ---
DATE: 05/31/2018 This late entry for 05/31/2018 covers elements not covered in my initial note. SUBJECTIVE: I met with the patient in the evening. The patient slept 7-1/2 hours previous night. She has been better, more cooperative, less anxious, less restless, less paranoid. REVIEW OF SYSTEMS: No CV, , pulmonary, eye, ENT system symptoms on review. MENTAL STATUS EXAM: Oriented to herself, situation reasonably oriented. Speech is coherent, abstraction fair, computation impaired, language function intact, attention span short. Mood and affect improved. LABORATORY DATA: Reviewed. IMPRESSION: Unchanged from initial note. PLAN: No change from initial note. LENORE REAGAN MD DR: MOIZ/victor m JOB#: [id number] / [id number]
[2018-06-02] MEDS: LEVOTHYROXINE 100 MCG TABLET PO SCH (05:22)
[2018-06-02 05:45] VITALS: BP 129/75
[2018-06-02] MEDS: CITALOPRAM 20 MG TABLET. PO SCH (07:53)
[2018-06-02] MEDS: FOLIC ACID 1 MG TABLET PO SCH (07:53)
[2018-06-02] MEDS: LOSARTAN 50 MG TABLET. PO SCH (07:53)
[2018-06-02] MEDS: ATENOLOL 25 MG TABLET PO SCH (07:54)
[2018-06-02] MEDS: ASPIRIN 81 MG TAB.CHEW PO SCH (07:54)
[2018-06-02 16:31] VITALS: BP 123/63
[2018-06-02] MEDS: risperiDONE 1 MG TABLET. PO SCH (20:53)
[2018-06-02] MEDS: MIRTAZAPINE 7.5 MG TABLET. PO SCH (20:53)
[2018-06-02] MEDS: traZODone 50 MG TABLET. PO SCH (20:57)
--- NOTE | 2018-06-02 21:02 | PN ---
DATE: 06/01/2018 PSYCHIATRIC PROGRESS NOTE This late entry 06/01/2018 covers elements not covered in my initial note. SUBJECTIVE: I met with the patient in the evening. The patient slept 7 hours previous night. She remains more pleasant, has some short-term memory deficits. REVIEW OF SYSTEMS: No CV, , pulmonary, eye system symptoms on review. MENTAL STATUS EXAM: Oriented to herself and situation. Speech has some latency, coherent. Abstraction fair, computation impaired, language function intact, attention span short. Mood and affect is improved. LABORATORY DATA: Reviewed. IMPRESSION: Unchanged from initial note. PLAN: No change from initial note. MAN Dileep REAGAN MD DR: MOIZ/victor m JOB#: [id number] / [id number]
--- NOTE | 2018-06-02 22:24 | PDOC ---
Exam Note: [place] Note: Please also refer to the separate dictated note~for this date of service dictated separately.~Patient seen individually. Discussed the patient with Nursing staff reviewed the chart.~Reviewed interim history and current functioning. Reviewed vital signs,~Labs/ Radiology~and current medications noted below. Continue current treatment with the changes noted in the dictated addendum note Assessment: Vital Signs: Vital Signs Date Time Temp Pulse Resp B/P (MAP) Pulse Ox O2 Delivery O2 Flow Rate FiO2 06/02/18 16:31 98.2 82 20 123/63 (83) 92 06/01/18 15:45 Room Air 05/28/18 05:51 1.5 I&O Intake and Output 06/02/18 07:00 Intake Total 960 ml Balance 960 ml Intake Oral 960 ml # Voids 1 Current Medications: Meds: Current Medications Acetaminophen (Tylenol) 650 mg PRN Q4HRS PRN PO FEVER; Start 05/20/18 at 21:45 ; Stop 05/21/18 at 21:44; Status DC Acetaminophen (Tylenol) 650 mg PRN Q6HRS PRN PO PAIN / TEMP Last administered on 05/25/18at 01:50; Start 05/21/18 at 01:00 Multi-Ingredient Ointment (Analgesic [place]) 1 best PRN QID PRN TP MUSCLE PAIN; Start 05/21/18 at 01:00 Al Hydroxide/Mg Hydroxide (Mylanta Plus Xs) 15 ml PRN AFTMEALHC PRN PO DYSPEPSIA; Start 05/21/18 at 01:00 Magnesium Hydroxide (Milk Of Magnesia) 2,400 mg PRN QHS PRN PO CONSTIPATION; Start 05/21/18 at 01:00 Atenolol (Tenormin) 25 mg DAILY PO Last administered on 06/02/18at 07:54; Start 05/21/18 at 09:00 Levothyroxine Sodium (Synthroid) 100 mcg DAILY06 PO Last administered on 05:22; Start 05/21/18 at 06:00 Aspirin (Children'S Aspirin) 81 mg DAILYWBKFT PO Last administered on 06/02/18at 07:54; Start 05/21/18 at 08:00 Folic Acid (Folic Acid) 1 mg DAILY PO Last administered on 06/02/18at 07:53; Start 05/21/18 at 09:00 Losartan Potassium (Cozaar) 50 mg DAILY PO Last administered on 06/02/18 07:53 ; Start 05/21/18 at 09:00 Citalopram Hydrobromide (CeleXA) 20 mg DAILY PO Last administered on 06/02/18 07:53; Start 05/21/18 at 09:00 Non-Formulary Medication (Quetiapine Fumarate (Seroquel Xr)) 300 mg DAILY PO ; Start 05/21/18 at 09:00; Stop 05/21/18 at 09:00; Status DC Quetiapine Fumarate (SEROquel) 150 mg BID PO Last administered on 05/22/18 20: 07; Start 05/21/18 at 09:00; Stop 05/23/18 at 00:01; Status DC Vitamin D (Vitamin D3) 50,000 unit WEEKLY PO Last administered on 05/28/18 08: 33; Start 05/21/18 at 18:30 Risperidone (RisperDAL) 0.5 mg 1X ONCE PO Last administered on 05/23/18 01:53 ; Start 05/23/18 at 01:15; Stop 05/23/18 at 01:21; Status DC Risperidone (RisperDAL) 1 mg HS PO Last administered on 05/24/18 19:50; Start 05/23/18 at 21:00; Stop 05/25/18 at 16:59; Status DC Olanzapine (ZyPREXA ZYDIS) 2.5 mg PRN Q2HR PRN PO PSYCHOSIS; Start 05/23/18 at 00:00 Trazodone HCl (Desyrel) 50 mg QHS PO Last administered on 06/02/18 20:57; Start 05/23/18 at 21:00 Risperidone (RisperDAL) 1.5 mg QHS PO Last administered on 06/02/18 20:53; Start 05/25/18 at 21:00 Mirtazapine (Remeron) 7.5 mg QHS PO Last administered on 06/02/18 20:53; Start 05/25/18 at 21:00 Active Scripts Active Reported Synthroid (Levothyroxine Sodium) 100 Mcg Tablet 100 Mcg PO DAILYAC Seroquel Xr (Quetiapine Fumarate) 300 Mg Tab.er.24h 300 Mg PO DAILY Losartan Potassium 50 Mg Tablet 50 Mg PO DAILY Escitalopram Oxalate 10 Mg Tablet 10 Mg PO DAILY Folic Acid 1 Mg Tablet 1 Mg PO DAILY Atenolol (Atenolol) 25 Mg Tablet 25 Mg PO DAILY Aspir-Low (Aspirin) 81 Mg Tablet.dr 81 Mg PO DAILY I have reviewed the current psychotropics carefully including drug interactions. Risk benefit ratio favors no change other than as noted in my dictated progress note. Diagnosis: Problems: (1) Dementia with behavioral disturbance (2) Medical clearance for psychiatric admission LENORE REAGAN MD Jun 02, 2018 22:24
[2018-06-03] MEDS ORDERED: ACET325T9 PO (01:45)
[2018-06-03] MEDS ORDERED: CHOL500050 PO (01:46)
[2018-06-03] MEDS ORDERED: CITA20TA9 PO (01:46)
[2018-06-03] MEDS ORDERED: MAGN2400 PO (01:48)
[2018-06-03] MEDS ORDERED: MAG355OR17 PO (01:48)
[2018-06-03] MEDS ORDERED: METH29OI TP (01:49)
[2018-06-03] MEDS ORDERED: MIRT15TA PO (01:50)
[2018-06-03] MEDS ORDERED: OLAN2.5T3 PO (01:51)
[2018-06-03] MEDS ORDERED: RISP2TAB33 PO (01:51)
[2018-06-03] MEDS ORDERED: TRAZ-120 PO (01:52)
[2018-06-03 05:51] VITALS: BP 130/68
[2018-06-03] MEDS: LEVOTHYROXINE 100 MCG TABLET PO SCH (06:04)
[2018-06-03 08:16] VITALS: BP 130/68
[2018-06-03] MEDS: LOSARTAN 50 MG TABLET. PO SCH (08:16)
[2018-06-03] MEDS: ATENOLOL 25 MG TABLET PO SCH (08:16)
[2018-06-03] MEDS: FOLIC ACID 1 MG TABLET PO SCH (08:16)
[2018-06-03] MEDS: ASPIRIN 81 MG TAB.CHEW PO SCH (08:16)
[2018-06-03] MEDS: CITALOPRAM 20 MG TABLET. PO SCH (08:18)
--- NOTE | 2018-06-03 17:47 | PDOC ---
Exam Note: [place] Note: Please also refer to the separate dictated note~for this date of service dictated separately.~Patient seen individually. Discussed the patient with Nursing staff reviewed the chart.~Reviewed interim history and current functioning. Reviewed vital signs,~Labs/ Radiology~and current medications noted below. Continue current treatment with the changes noted in the dictated addendum note Assessment: Vital Signs: Vital Signs Date Time Temp Pulse Resp B/P (MAP) Pulse Ox O2 Delivery O2 Flow Rate FiO2 06/03/18 08:16 70 130/68 06/03/18 05:51 97.8 20 96 06/01/18 15:45 Room Air I&O Intake and Output 06/03/18 07:00 Intake Total 1200 ml Balance 1200 ml Intake Oral 1200 ml Current Medications: Meds: Current Medications Acetaminophen (Tylenol) 650 mg PRN Q4HRS PRN PO FEVER; Start 05/20/18 at 21:45 ; Stop 05/21/18 at 21:44; Status DC Acetaminophen (Tylenol) 650 mg PRN Q6HRS PRN PO PAIN / TEMP Last administered on 05/25/18at 01:50; Start 05/21/18 at 01:00; Stop 06/03/18 at 13:48; Status DC Multi-Ingredient Ointment (Analgesic [place]) 1 ronny PRN QID PRN TP MUSCLE PAIN; Start 05/21/18 at 01:00; Stop 06/03/18 at 13:48; Status DC Al Hydroxide/Mg Hydroxide (Mylanta Plus Xs) 15 ml PRN AFTMEALHC PRN PO DYSPEPSIA; Start 05/21/18 at 01:00; Stop 06/03/18 at 13:48; Status DC Magnesium Hydroxide (Milk Of Magnesia) 2,400 mg PRN QHS PRN PO CONSTIPATION; Start 05/21/18 at 01:00; Stop 06/03/18 at 13:48; Status DC Atenolol (Tenormin) 25 mg DAILY PO Last administered on 06/03/18at 08:16; Start 05/21/18 at 09:00; Stop 06/03/18 at 13:48; Status DC Levothyroxine Sodium (Synthroid) 100 mcg DAILY06 PO Last administered on at 06:04; Start 05/21/18 at 06:00; Stop 06/03/18 at 13:48; Status DC Aspirin (Children'S Aspirin) 81 mg DAILYWBKFT PO Last administered on 06/03/18 08:16; Start 05/21/18 at 08:00; Stop 06/03/18 at 13:48; Status DC Folic Acid (Folic Acid) 1 mg DAILY PO Last administered on 06/03/18 08:16; Start 05/21/18 at 09:00; Stop 06/03/18 at 13:48; Status DC Losartan Potassium (Cozaar) 50 mg DAILY PO Last administered on 06/03/18 08:16 ; Start 05/21/18 at 09:00; Stop 06/03/18 at 13:49; Status DC Citalopram Hydrobromide (CeleXA) 20 mg DAILY PO Last administered on 06/03/18at 08:18; Start 05/21/18 at 09:00; Stop 06/03/18 at 13:49; Status DC Non-Formulary Medication (Quetiapine Fumarate (Seroquel Xr)) 300 mg DAILY PO ; Start 05/21/18 at 09:00; Stop 05/21/18 at 09:00; Status DC Quetiapine Fumarate (SEROquel) 150 mg BID PO Last administered on 05/22/18at 20: 07; Start 05/21/18 at 09:00; Stop 05/23/18 at 00:01; Status DC Vitamin D (Vitamin D3) 50,000 unit WEEKLY PO Last administered on 05/28/18at 08: 33; Start 05/21/18 at 18:30; Stop 06/03/18 at 13:49; Status DC Risperidone (RisperDAL) 0.5 mg 1X ONCE PO Last administered on 05/23/18at 01:53 ; Start 05/23/18 at 01:15; Stop 05/23/18 at 01:21; Status DC Risperidone (RisperDAL) 1 mg HS PO Last administered on 05/24/18at 19:50; Start 05/23/18 at 21:00; Stop 05/25/18 at 16:59; Status DC Olanzapine (ZyPREXA ZYDIS) 2.5 mg PRN Q2HR PRN PO PSYCHOSIS; Start 05/23/18 at 00:00; Stop 06/03/18 at 13:49; Status DC Trazodone HCl (Desyrel) 50 mg QHS PO Last administered on 06/02/18at 20:57; Start 05/23/18 at 21:00; Stop 06/03/18 at 13:49; Status DC Risperidone (RisperDAL) 1.5 mg QHS PO Last administered on 06/02/18at 20:53; Start 05/25/18 at 21:00; Stop 06/03/18 at 13:49; Status DC Mirtazapine (Remeron) 7.5 mg QHS PO Last administered on 06/02/18at 20:53; Start 05/25/18 at 21:00; Stop 06/03/18 at 13:49; Status DC Active Scripts Active Reported Trazodone Hcl 50 Mg Tablet 50 Mg PO QHS Risperdal (Risperidone) 2 Mg Tablet 1.5 Mg PO QHS Zyprexa (Olanzapine) 2.5 Mg Tablet 2.5 Mg PO PRN Q2HR PRN Remeron (Mirtazapine) 15 Mg Tablet 7.5 Mg PO QHS Analgesic [place] (Methyl Salicylate/Menthol) 28 Gm Oint...g. 1 Ronny TP PRN QID PRN Milk Of Magnesia (Magnesium Hydroxide) 2,400 Mg/10 Ml Oral.susp 2,400 Mg PO PRN QHS PRN Advanced Antacid Liquid (Mag Hydrox/Al Hydrox/Simeth) 355 Ml Oral.susp 15 Ml PO PRN AFTMEALHC PRN Celexa (Citalopram Hydrobromide) 20 Mg Tablet 20 Mg PO DAILY Vitamin D3 (Cholecalciferol (Vitamin D3)) 50,000 Unit Capsule 50,000 Unit PO WEEKLY Tylenol (Acetaminophen) 325 Mg Tablet 650 Mg PO PRN Q6HRS PRN Synthroid (Levothyroxine Sodium) 100 Mcg Tablet 100 Mcg PO DAILYAC Losartan Potassium 50 Mg Tablet 50 Mg PO DAILY Folic Acid 1 Mg Tablet 1 Mg PO DAILY Atenolol (Atenolol) 25 Mg Tablet 25 Mg PO DAILY Aspir-Low (Aspirin) 81 Mg Tablet. 81 Mg PO DAILY I have reviewed the current psychotropics carefully including drug interactions. Risk benefit ratio favors no change other than as noted in my dictated progress note. Diagnosis: Problems: (1) Anxiety disorder (2) Bipolar affective, mixed, severe (3) Major depressive disorder, recurrent episode (4) Mild cognitive impairment LENORE REAGAN MD Jun 03, 2018 17:47
--- NOTE | 2018-06-04 13:38 | DS ---
DATE OF DISCHARGE: 06/03/2018 DISCHARGE SUMMARY/PSYCHIATRIC PROGRESS NOTE This note covers elements not covered in my initial note of 06/03/2018. IDENTIFYING DATA: The patient is a 72-year-old female referred to us from [facility] where she receives outpatient psychiatric treatment and case management on account of increased anxiety, paranoia. She is suspicious, anxious with marked mood lability, convinced that she will be kicked out of her apartment, thought that someone will break in. She has been refusing her psychotropics for the bipolar disorder for the past 2 weeks, has failed outpatient psychiatric interventions despite intensive case management and outpatient services and we were contacted directly by [facility] for this inpatient stabilization. SIGNIFICANT FINDINGS AND CLINICAL COURSE: Following admission, the patient was seen daily individually by myself from a psychiatric standpoint, medical followup per Dr. Collier. The patient was extremely paranoid, anxious with marked mood lability, being hyperverbal, distractible at admission. She was gradually stabilized on a combination of Celexa 20 mg a day, trazodone 50 mg at bedtime, may repeat x 1. Risperdal 1.5 mg p.o. at bedtime, Zyprexa p.r.n., Remeron 7.5 mg p.o. at bedtime. Prior to discharge on 06/03/2018. REVIEW OF SYSTEMS: No CV, , pulmonary, eye, ENT system symptoms on review. CONDITION ON DISCHARGE: Improved. FINAL DIAGNOSES: Bipolar 1 disorder, mixed with psychotic features, in partial remission; anxiety disorder, unspecified, mild cognitive impairment, history of major depressive disorder with psychotic features. DISCHARGE MEDICATIONS: Please refer to the MRAD. DISCHARGE INSTRUCTIONS: Outpatient psychiatric and medical followup at [facility]. Time for discharge day management greater than 30 minutes. LENORE REAGAN MD DR: MOIZ/victor m JOB#: [id number] / [id number]
--- NOTE | 2018-06-04 17:01 | PN ---
DATE: 06/02/2018 PSYCHIATRIC PROGRESS NOTE This late entry 06/02/2018 covers elements not covered in my initial note. SUBJECTIVE: I met with the patient in the evening. The patient slept 7-3/4 hours previous night. She has been fairly cooperative, less anxious, less labile, less paranoid. Mood lability is improved as well. REVIEW OF SYSTEMS: No CV, , pulmonary, eye system symptoms on review. MENTAL STATUS EXAM: Oriented reasonably to herself and situation. Speech coherent, somewhat pressured at times, but much improved. Abstraction fair, computation impaired, language function intact, attention span short. Mood and affect remains improved. LABORATORY DATA: Reviewed. IMPRESSION: Bipolar 1 disorder, mixed with psychotic features, in partial remission; anxiety disorder, unspecified; mild cognitive impairment. PLAN: Continue Celexa 20 mg a day, trazodone 50 mg at bedtime, june repeat x 1. Risperdal 1.5 mg at bedtime, Zyprexa p.r.n., Remeron 7.5 mg p.o. at bedtime. We will transition to outpatient treatment at the [facility] on 06/03/2018. LENORE REAGAN MD DR: MOIZ/victor m JOB#: [id number] / [id number]
== END 2018-06-03 13:40 | DRG 885 ==
LOC: ER 19:37 → GEROPSY 05-21 00:01
PROVIDERS: ADMIT Psychiatry & Neurology Psychiatry; ATTEND Psychiatry & Neurology Psychiatry
DX: F31.64 Bipolar disorder, current episode mixed, severe, with psychotic features (principal); F01.51 Vascular dementia, unspecified severity, with behavioral disturbance; G30.9 Alzheimer's disease, unspecified; F63.9 Impulse disorder, unspecified; E55.9 Vitamin D deficiency, unspecified; E03.9 Hypothyroidism, unspecified; I10 Essential (primary) hypertension; M19.90 Unspecified osteoarthritis, unspecified site; K59.09 Other constipation; F41.1 Generalized anxiety disorder; Z88.8 Allergy status to other drugs, medicaments and biological substances; Z91.14 Patient's other noncompliance with medication regimen
CPT/HCPCS: 36415; 70450; 80048; 80053; 80061; 80307; 81001; 82306; 83036; 83540; 83550; 83735; 84436; 84439; 84443; 84480; 85025; 86592; 87086; G0480; 97110; 97116; 97530; 97535; 99285-25